=== PATIENT | female | born 1960 | race Caucasian/White ===

== ENCOUNTER → 2016-12-07 | Outpatient (CLI) | payer OTHER | LOC: FIMAGING 11:13 | PROVIDERS: ATTEND Family Medicine | DX: R06.00 Dyspnea, unspecified (principal); Z87.01 Personal history of pneumonia (recurrent) ==

== ENCOUNTER 2018-01-31 18:48 | Inpatient (IN) | payer OTHER ==
[2018-01-31] MEDS ORDERED: NS 1,000 ML IV ONE (19:26)
[2018-01-31] MEDS ORDERED: ONDANSETRON 4 MG/2 ML VIAL IVP ONE (19:26)
--- NOTE | 2018-01-31 19:30 | EDPHY ---
H & P Stated Complaint: lower abd pain, constipation x 6 days Time Seen by Provider: 01/31/18 19:11 HPI/ROS: CHIEF COMPLAINT: Low abdominal pain x6 days HISTORY OF PRESENT ILLNESS: 57-year-old female history of obesity, complaining of lower abdominal pain for the past 6 days, last bowel movement 7 days ago. Passing flatus. Positive mild nausea. No back or flank pain. Notes that her urine is more foul-smelling than usual. No fever or chills. History of abdominal surgeries. PRIMARY CARE PROVIDER: Tre Madrid REVIEW OF SYSTEMS: A ten point review of systems was performed and is negative with the exception of the items mentioned in the HPI PAST MEDICAL & SURGICAL HISTORY: Lumbar surgery. Chronic oxygen dependence. No history of abdominal surgeries. SOCIAL HISTORY: Positive tobacco abuse. PHYSICAL EXAM (Prior to examination, patient consented to physical exam, hands were washed and my usual and customary physical exam procedures followed) 1) GENERAL: Obese alert and oriented. Appears uncomfortable. 2) HEAD: Normocephalic, atraumatic 3) HEENT: Pupils equal, round, reactive to light bilaterally. Sclera anicteric. Nasopharynx, oropharynx, clear, no lesions. Dry mucous membranes 4) NECK: Full range of motion, no meningeal signs. 5) LUNGS: Clear auscultation bilaterally, no wheezes, no rhonchi, no retractions. 6) HEART: Regular rate and rhythm, no murmur, no heave, no gallop. 7) ABDOMEN: No guarding, tender to palpation bilateral lower quadrants, left greater than right, negative Caal's, negative peritoneal sign, 8) MUSCULOSKELETAL: Moving all extremities, no focal areas of tenderness, no obvious trauma. No peripheral edema or discoloration. 9) BACK: No CVA tenderness, no midline vertebral tenderness, no fluctuance, no step-off, no obvious trauma, no visual or palpable abnormality. 10) SKIN: No rash, no petechiae. 11) RECTAL (with nurse Chelo at bedside): Brown stool on glove. DIFFERENTIAL DIAGNOSIS: My differential diagnosis includes, but is not limited to, acute appendicitis, acute cholecystitis, bowel obstruction, acute pancreatitis, gastritis and urinary tract infection. The patient understands that this diagnosis is provisional and can never be 100% accurate. This is a partial list of diagnoses considered. These considerations are based on history , physical exam, past history and reassessment. - Personal History Tetanus Vaccine Date: 2008 - Medical/Surgical History Hx Asthma: No Hx Diabetes: No Hx Cardiac Disease: No Hx Renal Disease: No Hx Cirrhosis: No Hx Alcoholism: No Hx HIV/AIDS: No Hx Splenectomy or Spleen Trauma: No Other PMH: renal insuff. hepatitis. black mold - Social History Smoking Status: Never smoked Constitutional: Initial Vital Signs Temperature (C) 36.7 C 01/31/18 18:56 Heart Rate 100 01/31/18 18:56 Respiratory Rate 18 01/31/18 18:56 Blood Pressure 127/94 H 01/31/18 18:56 O2 Sat (%) 90 L 01/31/18 18:56 O2 Delivery Mode Room Air O2 (L/minute) 3 Allergies/Adverse Reactions: No Known Allergies Allergy (Unverified 01/31/18 18:54) Home Medications: Medication Instructions Recorded Lasix 01/31/18 Levothyroxine 01/31/18 Medical Decision Making - Diagnostics Imaging Results: Imaging Impressions Abdomen CT 01/31/18 19:58 Impression: Redundant sigmoid colon, with diverticulitis. Probable complex abscess between a loop of sigmoid colon and fundus of the uterus. Results called and discussed with Silverio Villegas PA-C, at January 31, 2018 at 6. Images reviewed by myself ED Course/Re-evaluation: 7:29 p.m.: Will obtain diagnostic studies including CT imaging to evaluate possible diverticulitis. Indications risks benefits discussed with patient and she consents. Care of patient under supervision of secondary supervising physician Dr Gonsalez whom I discussed case 8:25 p.m.: Discussed the imaging results with the staff radiologist showing a likely intra-abdominal abscess and viscous perforation 8:30 p.m.: Consultation with surgery Dr. Ziegler who agrees to admit patient primarily. Patient started on ceftriaxone Rocephin. Patient is also noted to have bacteriuria and pyuria. Urine is cultured. She is already on ceftriaxone for intra-abdominal pathology. Patient is also noted to be anemic, H&H 10 and 30 with guaiac-positive stool. - Data Points Laboratory Results: Laboratory Results 01/31/18 19:35 01/31/18 19:35 01/31/18 01/31/18 01/31/18 20:40 19:35 19:35 WBC 10.81 10^3/uL H 10^3/uL (3.80-9.50) RBC 3.16 10^6/uL L 10^6/uL (4.18-5.33) Hgb 10.3 g/dL L g/dL (12.6-16.3) Hct 32.1 % L % (38.0-47.0) MCV 101.6 fL H fL (81.5-99.8) MCH 32.6 pg pg (27.9-34.1) MCHC 32.1 g/dL L g/dL (32.4-36.7) RDW 15.0 % % (11.5-15.2) Plt Count 242 10^3/uL 10^3/uL (150-400) MPV 10.5 fL fL (8.7-11.7) Neut % (Auto) Not Reported Lymph % (Auto) Not Reported [place] % (Auto) Not Reported Eos % (Auto) Not Reported Baso % (Auto) Not Reported Nucleat RBC Rel Count 0.7 % H % (0.0-0.2) Absolute Neuts (auto) Not Reported Absolute Lymphs (auto) Not Reported Absolute Monos (auto) Not Reported Absolute Eos (auto) Not Reported Absolute Basos (auto) Not Reported Absolute Nucleated RBC 0.08 10^3/uL H 10^3/uL (0-0.01) Immature Gran % Not Reported Immature Gran # Not Reported Platelet Estimate Pending Sodium 142 mEq/L mEq/L (135-145) Potassium 3.4 mEq/L L mEq/L (3.5-5.2) Chloride 99 mEq/L mEq/L (97-110) Carbon Dioxide 27 mEq/l mEq/l (22-31) Anion Gap 16 mEq/L mEq/L (8-16) BUN 13 mg/dL mg/dL (7-23) Creatinine 0.9 mg/dL mg/dL (0.6-1.0) Estimated GFR > 60 Glucose 92 mg/dL mg/dL (70-100) Calcium 8.5 mg/dL mg/dL (8.5-10.4) Total Bilirubin 0.9 mg/dL mg/dL (0.1-1.4) Conjugated Bilirubin 0.8 mg/dL H mg/dL (0.0-0.5) Unconjugated Bilirubin 0.1 mg/dL mg/dL (0.0-1.1) AST 135 IU/L H IU/L (14-46) ALT 153 IU/L H IU/L (9-52) Alkaline Phosphatase 311 IU/L H IU/L (38-126) Total Protein 8.1 g/dL g/dL (6.3-8.2) Albumin 3.9 g/dL g/dL (3.5-5.0) Lipase 173 IU/L IU/L (23-300) Urine Color Urine Appearance Urine pH Ur Specific [place] Urine Protein Urine Ketones Urine Blood Urine Nitrate Urine Bilirubin Urine Urobilinogen Ur Leukocyte Esterase Urine RBC Urine WBC Ur Epithelial Cells Urine Bacteria Urine Mucus Urine Glucose Stool Occult Bld Scrn POSITIVE H (NEGATIVE) 01/31/18 19:10 WBC RBC Hgb Hct MCV MCH MCHC RDW Plt Count MPV Neut % (Auto) Lymph % (Auto) [place] % (Auto) Eos % (Auto) Baso % (Auto) Nucleat RBC Rel Count Absolute Neuts (auto) Absolute Lymphs (auto) Absolute Monos (auto) Absolute Eos (auto) Absolute Basos (auto) Absolute Nucleated RBC Immature Gran % Immature Gran # Platelet Estimate Sodium Potassium Chloride Carbon Dioxide Anion Gap BUN Creatinine Estimated GFR Glucose Calcium Total Bilirubin Conjugated Bilirubin Unconjugated Bilirubin AST ALT Alkaline Phosphatase Total Protein Albumin Lipase Urine Color SEBASTIAN Urine Appearance HAZY Urine pH 6.0 (5.0-7.5) Ur Specific [place] 1.017 (1.002-1.030) Urine Protein 1+ H (NEGATIVE) Urine Ketones NEGATIVE (NEGATIVE) Urine Blood NEGATIVE (NEGATIVE) Urine Nitrate POSITIVE H (NEGATIVE) Urine Bilirubin NEGATIVE (NEGATIVE) Urine Urobilinogen 4.0 EU H EU (0.2-1.0) Ur Leukocyte Esterase 2+ H (NEGATIVE) Urine RBC 1-3 /hpf /hpf (0-3) Urine WBC 50-182 /hpf H /hpf (0-3) Ur Epithelial Cells TRACE /lpf /lpf (NONE-1+) Urine Bacteria 4+ /hpf H /hpf (NONE SEEN) Urine Mucus TRACE /lpf /lpf (NONE-1+) Urine Glucose NEGATIVE (NEGATIVE) Stool Occult Bld Scrn Medications Given: Discontinued Medications Sodium Chloride (Ns) 1,000 mls @ 0 mls/hr IV ONCE ONE PRN Reason: Wide Open Stop: 01/31/18 19:27 Last Admin: 01/31/18 19:45 Dose: 1,000 mls Morphine Sulfate (Morphine) 4 mg IVP EDNOW ONE Stop: 01/31/18 19:27 Last Admin: 01/31/18 19:44 Dose: 4 mg Ondansetron HCl (Zofran) 4 mg IVP EDNOW ONE Stop: 01/31/18 19:27 Last Admin: 01/31/18 19:44 Dose: 4 mg Departure - Departure Disposition: [facility] [place] Inpatient Acute Clinical Impression: Intra-abdominal abscess, Perforated viscus, LFT elevation Abdominal pain Qualifiers: Abdominal location: left lower quadrant Qualified Code(s): R10.32 - Left lower quadrant pain GI bleed Qualifiers: GI bleed type/associated pathology: unspecified gastrointestinal hemorrhage type Qualified Code(s): K92.2 - Gastrointestinal hemorrhage, unspecified Anemia Qualifiers: Anemia type: unspecified type Qualified Code(s): D64.9 - Anemia, unspecified Condition: Fair Referrals: Tre Madrid DO [Primary Care Provider] - As per Instructions
[2018-01-31 19:44] LABS: PLATELET COUNT 242 10^3/uL (150-400)
[2018-01-31] MEDS ORDERED: IOPAMIDOL (ISOVUE-300) 100 ML BTL ONE (20:01)
[2018-01-31] MEDS ORDERED: ONDANSETRON 4 MG/2 ML VIAL IVP PRN (20:58)
[2018-01-31] MEDS ORDERED: HYDROmorphone HCL/NS 0.5 MG/ML SYR IVP PRN (20:58)
[2018-01-31] MEDS ORDERED: D5W 1/2 NS W/ 20 KCl/L 1,000 ML IV SCH (21:00)
--- NOTE | 2018-01-31 21:10 | PDGENHP ---
History and Physical - Chief Complaint abdominal pain - History of Present Illness 57yo F, presents to the ED with 6 day history of abdominal pain. States pain is crampy and colicky, came to the ED tonight as she could no longer tolerate the pain. Denies fevers, endorses chills. Last PO intake was this AM. BMs have been irregular. History Information - Allergies/Home Medication List Allergies/Adverse Reactions: No Known Allergies Allergy (Unverified 01/31/18 18:54) Home Medications: Lasix 01/31/18 [Last Taken Unknown] Levothyroxine 01/31/18 [Last Taken Unknown] I have personally reviewed and updated: family history, medical history, social history, surgical history Past Medical History: hypothyroid, chronic back pain, chronic O2 - Surgical History Additional surgical history: back surgery - Family History Positive for: non-pertinent - Social History Smoking Status: Never smoked Review of Systems Review of Systems: ROS: 10pt was reviewed & negative except for what was stated in HPI & below Physical Exam Physical Exam: Temp Pulse Resp BP Pulse Ox 36.7 C 100 18 127/94 H 90 L 01/31/18 18:56 01/31/18 18:56 01/31/18 18:56 01/31/18 18:56 01/31/18 18:56 Constitutional: appears nourished, not in pain, other (mild distress) Eyes: PERRL, anicteric sclera, EOMI Ears, Nose, Mouth, Throat: moist mucous membranes, hearing normal, ears appear normal, no oral mucosal ulcers Cardiovascular: regular rate and rhythym, no murmur, rub, or gallop, No edema Respiratory: no respiratory distress, no rales or rhonchi, clear to auscultation , other (on O2) Gastrointestinal: other (Obese, TTP inferior to the umbilicus, with rebound tenderness. ) Genitourinary: no bladder fullness, no bladder tenderness Skin: warm, normal color, no rashes or abrasions, no fluctuance, no induration, No mottled Musculoskeletal: full muscle strength, no muscle tenderness, normal joint ROM, no joint effusions Psychiatric: interacting appropriately, not anxious, not encephalopathic, thought process linear Lymph, Heme, Immunologic: no cervical LAD, no supraclavicular LAD Lab Data & Imaging Review 01/31/18 19:35 01/31/18 19:35 WBC 10.81 10^3/uL (3.80-9.50) H 01/31/18 19:35 RBC 3.16 10^6/uL (4.18-5.33) L 01/31/18 19:35 Hgb 10.3 g/dL (12.6-16.3) L 01/31/18 19:35 Hct 32.1 % (38.0-47.0) L 01/31/18 19:35 MCV 101.6 fL (81.5-99.8) H 01/31/18 19:35 MCH 32.6 pg (27.9-34.1) 01/31/18 19:35 MCHC 32.1 g/dL (32.4-36.7) L 01/31/18 19:35 RDW 15.0 % (11.5-15.2) 01/31/18 19:35 Plt Count 242 10^3/uL (150-400) 01/31/18 19:35 MPV 10.5 fL (8.7-11.7) 01/31/18 19:35 Neut % (Auto) Not Reported 01/31/18 19:35 Lymph % (Auto) Not Reported 01/31/18 19:35 [place] % (Auto) Not Reported 01/31/18 19:35 Eos % (Auto) Not Reported 01/31/18 19:35 Baso % (Auto) Not Reported 01/31/18 19:35 Nucleat RBC Rel Count 0.7 % (0.0-0.2) H 01/31/18 19:35 Absolute Neuts (auto) Not Reported 01/31/18 19:35 Absolute Lymphs (auto) Not Reported 01/31/18 19:35 Absolute Monos (auto) Not Reported 01/31/18 19:35 Absolute Eos (auto) Not Reported 01/31/18 19:35 Absolute Basos (auto) Not Reported 01/31/18 19:35 Absolute Nucleated RBC 0.08 10^3/uL (0-0.01) H 01/31/18 19:35 Immature Gran % Not Reported 01/31/18 19:35 Seg Neutrophils % 73 % 01/31/18 19:35 Lymphocytes % 23 % 01/31/18 19:35 Monocytes % 4 % 01/31/18 19:35 Immature Gran # Not Reported 01/31/18 19:35 Absolute Seg Neuts 7.89 10^/uL (1.70-6.50) H 01/31/18 19:35 Absolute Lymphocytes 2.49 10^3/uL (1.00-3.00) 01/31/18 19:35 Absolute Monocytes 0.43 10^3/uL (0.30-0.80) 01/31/18 19:35 Nucleated RBCs 1 /100 WBC (0-0) H 01/31/18 19:35 Platelet Estimate ADEQUATE (ADEQ) 01/31/18 19:35 Polychromasia 1+ H 01/31/18 19:35 Sodium 142 mEq/L (135-145) 01/31/18 19:35 Potassium 3.4 mEq/L (3.5-5.2) L 01/31/18 19:35 Chloride 99 mEq/L (97-110) 01/31/18 19:35 Carbon Dioxide 27 mEq/l (22-31) 01/31/18 19:35 Anion Gap 16 mEq/L (8-16) 01/31/18 19:35 BUN 13 mg/dL (7-23) 01/31/18 19:35 Creatinine 0.9 mg/dL (0.6-1.0) 01/31/18 19:35 Estimated GFR > 60 01/31/18 19:35 Glucose 92 mg/dL (70-100) 01/31/18 19:35 Calcium 8.5 mg/dL (8.5-10.4) 01/31/18 19:35 Total Bilirubin 0.9 mg/dL (0.1-1.4) 01/31/18 19:35 Conjugated Bilirubin 0.8 mg/dL (0.0-0.5) H 01/31/18 19:35 Unconjugated Bilirubin 0.1 mg/dL (0.0-1.1) 01/31/18 19:35 AST 135 IU/L (14-46) H 01/31/18 19:35 ALT 153 IU/L (9-52) H 01/31/18 19:35 Alkaline Phosphatase 311 IU/L (38-126) H 01/31/18 19:35 Total Protein 8.1 g/dL (6.3-8.2) 01/31/18 19:35 Albumin 3.9 g/dL (3.5-5.0) 01/31/18 19:35 Lipase 173 IU/L (23-300) 01/31/18 19:35 Urine Color SEBASTIAN 01/31/18 19:10 Urine Appearance HAZY 01/31/18 19:10 Urine pH 6.0 (5.0-7.5) 01/31/18 19:10 Ur Specific [place] 1.017 (1.002-1.030) 01/31/18 19:10 Urine Protein 1+ (NEGATIVE) H 01/31/18 19:10 Urine Ketones NEGATIVE (NEGATIVE) 01/31/18 19:10 Urine Blood NEGATIVE (NEGATIVE) 01/31/18 19:10 Urine Nitrate POSITIVE (NEGATIVE) H 01/31/18 19:10 Urine Bilirubin NEGATIVE (NEGATIVE) 01/31/18 19:10 Urine Urobilinogen 4.0 EU (0.2-1.0) H 01/31/18 19:10 Ur Leukocyte Esterase 2+ (NEGATIVE) H 01/31/18 19:10 Urine RBC 1-3 /hpf (0-3) 01/31/18 19:10 Urine WBC 50-182 /hpf (0-3) H 01/31/18 19:10 Ur Epithelial Cells TRACE /lpf (NONE-1+) 01/31/18 19:10 Urine Bacteria 4+ /hpf (NONE SEEN) H 01/31/18 19:10 Urine Mucus TRACE /lpf (NONE-1+) 01/31/18 19:10 Urine Glucose NEGATIVE (NEGATIVE) 01/31/18 19:10 Stool Occult Bld Scrn POSITIVE (NEGATIVE) H 01/31/18 20:40 Visualized and Interpreted imaging results: Yes Interpretation: CT: perforated diverticulitis with intraloop abscess Assessment & Plan Assessment: Abdominal pain (Acute) Anemia (Acute) GI bleed (Acute) Intra-abdominal abscess (Acute) LFT elevation (Acute) Perforated viscus (Acute) Plan: 57yo F with perforated diverticulitis and abscess - IV abx - NPO - to OR for ex lap, colectomy, possible ostomy. RBA discussed especially the high likelihood for colostomy
[2018-01-31] MEDS ORDERED: ACETAMINOPHEN 650 MG SUPP PR ONE (21:11)
[2018-01-31] MEDS ORDERED: LR 1,000 ML IV ONE ×2 (22:48)
[2018-01-31] MEDS ORDERED: ALBUTEROL 60 PUFFS/8 GM MDI IH PRN (23:47)
--- NOTE | 2018-01-31 23:51 | PDANEPAE ---
ANE History of Present Illness exlap ANE Past Medical History - Cardiovascular History Hx Hypertension: No Hx Arrhythmias: No Hx Chest Pain: No Hx Coronary Artery / Peripheral Vascular Disease: No Hx CHF / Valvular Disease: No Hx Palpitations: No - Pulmonary History Hx COPD: Yes Hx Asthma/Reactive Airway Disease: No Hx Recent Upper Respiratory Infection: No Hx Oxygen in Use at Home: Yes O2 in Use at Home (L/minute): 3 Hx Sleep Apnea: Yes - Endocrine History Hx Diabetes: No Hypothyroid: Yes Hyperthyroid: No Obesity: yes, severe - Renal History Hx Renal Disorders: Yes - Liver History Hx Hepatic Disorders: Yes - Neurological & Psychiatric Hx Hx Neurological and Psychiatric Disorders: Yes - Cancer History Hx Cancer: No - GI History GERD: mild - Chronic Pain History Chronic Pain: Yes ANE Review of Systems Review of Systems: - Exercise capacity Exercise capacity: <4 METS - Systems Gastrointestinal: Reports: abdominal pain ANE Patient History - Allergies Allergies/Adverse Reactions: No Known Allergies Allergy (Unverified 01/31/18 18:54) - Home Medications Home Medications: Albuterol [Proventil Inhaler HFA (*)] 1 - 2 puffs IH Q4H PRN 01/31/18 [Last Taken Unknown] Fluticasone/Salmeter 500/50Mcg [Advair 500/50 (*)] 1 puffs IH BID 01/31/18 [ Last Taken Unknown] Furosemide [Lasix 20 MG (*)] 20 mg PO DAILY 01/31/18 [Last Taken 01/28/18] Levothyroxine [Synthroid 175 mcg (*)] 175 mcg PO DAILY06 01/31/18 [Last Taken ] oxyCODONE IR [Oxycodone Ir (*)] 30 mg PO Q6 PRN 01/31/18 [Last Taken 01/25/18] - NPO status NPO Status: no food or drink >8 hours NPO Since - Liquids (Date): 01/31/18 NPO Since - Liquids (Time): 13:00 NPO Since - Solids (Date): 01/30/18 NPO Since - Solids (Time): 22:30 - Anes Hx Anes Hx: no prior problems - Smoking Hx Smoking Status: Light smoker Marijuana use: No - Alcohol Use Alcohol Use: Occasionally ANE Labs/Vital Signs - Labs Result Diagrams: 01/31/18 19:35 01/31/18 19:35 - Vital Signs Vital Signs: reviewed preoperatively; see RN documention for details Blood Pressure: 112/87 Heart Rate: 96 Respiratory Rate: 24 O2 Sat (%): 96 Height: 165.1 cm Weight: 113.398 kg ANE Physical Exam - Airway Neck exam: FROM Mallampati Score: Class 2 - Pulmonary Pulmonary: expiratory wheeze - Cardiovascular Cardiovascular: regular rate and rhythym - ASA Status ASA Status: III, E ANE Anesthesia Plan Anesthesia Plan: general endotracheal anesthesia
[2018-01-31] MEDS ORDERED: MIDAZOLAM 2 MG/2 ML VIAL IVP ONE (23:53)
[2018-02-01] MEDS ORDERED: ROCURONIUM 100 MG/10 ML VIAL ONE (00:16)
[2018-02-01] MEDS ORDERED: PROPOFOL 200 MG/20 ML VIAL ONE ×2 (00:16→00:17)
[2018-02-01] MEDS ORDERED: fentaNYL 100 MCG/2 ML INJ ONE (00:16)
[2018-02-01] MEDS ORDERED: MIDAZOLAM 2 MG/2 ML VIAL ONE (00:16)
--- NOTE | 2018-02-01 00:44 | PDHOSCONS ---
History and Physical - Chief Complaint Abdominal pain - History of Present Illness 57 yo obese F w/ obesity related respiratory disease, ?COPD, chronic pain, and venous insufficiency presents with abdominal pain. Work-up in the ED was notable for diverticulitis with perforation and abscess so she is being taken to OR for management. Surgery service requested consult for medical management of medical comorbidities. Work-up in ED also notable for a UTI. History Information - Allergies/Home Medication List Allergies/Adverse Reactions: No Known Allergies Allergy (Unverified 01/31/18 18:54) Home Medications: Albuterol [Proventil Inhaler HFA (*)] 1 - 2 puffs IH Q4H PRN 01/31/18 [Last Taken Unknown] Fluticasone/Salmeter 500/50Mcg [Advair 500/50 (*)] 1 puffs IH BID 01/31/18 [ Last Taken Unknown] Furosemide [Lasix 20 MG (*)] 20 mg PO DAILY 01/31/18 [Last Taken 01/28/18] Levothyroxine [Synthroid 175 mcg (*)] 175 mcg PO DAILY06 01/31/18 [Last Taken ] oxyCODONE IR [Oxycodone Ir (*)] 30 mg PO Q6 PRN 01/31/18 [Last Taken 01/25/18] I have personally reviewed and updated: family history, medical history Past Medical History: hypothyroid, chronic back pain, chronic O2 - Past Medical History COPD - Surgical History Additional surgical history: back surgery - Family History Positive for: cancer - Social History Smoking Status: Light smoker Alcohol Use: Occasionally Review of Systems Review of Systems: ROS: 10pt was reviewed & negative except for what was stated in HPI & below Physical Exam Physical Exam: Temp Pulse Resp BP Pulse Ox 38.1 C 96 24 H 112/87 H 96 01/31/18 23:05 01/31/18 23:53 01/31/18 23:53 01/31/18 23:53 01/31/18 23:53 O2 (L/minute) 4 Constitutional: obese, uncomfortable Eyes: PERRL, EOMI Ears, Nose, Mouth, Throat: moist mucous membranes, no oral mucosal ulcers Cardiovascular: regular rate and rhythym, no murmur, rub, or gallop Respiratory: no respiratory distress, reduced air movement Gastrointestinal: tenderness, guarding, No rebound Skin: warm, normal color Musculoskeletal: full muscle strength, no muscle tenderness Neurologic: AAOx3, CN II-XII Intact Psychiatric: interacting appropriately, not anxious Lab Data & Imaging Review 01/31/18 19:35 01/31/18 19:35 WBC 10.81 10^3/uL (3.80-9.50) H 01/31/18 19:35 RBC 3.16 10^6/uL (4.18-5.33) L 01/31/18 19:35 Hgb 10.3 g/dL (12.6-16.3) L 01/31/18 19:35 Hct 32.1 % (38.0-47.0) L 01/31/18 19:35 MCV 101.6 fL (81.5-99.8) H 01/31/18 19:35 MCH 32.6 pg (27.9-34.1) 01/31/18 19:35 MCHC 32.1 g/dL (32.4-36.7) L 01/31/18 19:35 RDW 15.0 % (11.5-15.2) 01/31/18 19:35 Plt Count 242 10^3/uL (150-400) 01/31/18 19:35 MPV 10.5 fL (8.7-11.7) 01/31/18 19:35 Neut % (Auto) Not Reported 01/31/18 19:35 Lymph % (Auto) Not Reported 01/31/18 19:35 [place] % (Auto) Not Reported 01/31/18 19:35 Eos % (Auto) Not Reported 01/31/18 19:35 Baso % (Auto) Not Reported 01/31/18 19:35 Nucleat RBC Rel Count 0.7 % (0.0-0.2) H 01/31/18 19:35 Absolute Neuts (auto) Not Reported 01/31/18 19:35 Absolute Lymphs (auto) Not Reported 01/31/18 19:35 Absolute Monos (auto) Not Reported 01/31/18 19:35 Absolute Eos (auto) Not Reported 01/31/18 19:35 Absolute Basos (auto) Not Reported 01/31/18 19:35 Absolute Nucleated RBC 0.08 10^3/uL (0-0.01) H 01/31/18 19:35 Immature Gran % Not Reported 01/31/18 19:35 Seg Neutrophils % 73 % 01/31/18 19:35 Lymphocytes % 23 % 01/31/18 19:35 Monocytes % 4 % 01/31/18 19:35 Immature Gran # Not Reported 01/31/18 19:35 Absolute Seg Neuts 7.89 10^/uL (1.70-6.50) H 01/31/18 19:35 Absolute Lymphocytes 2.49 10^3/uL (1.00-3.00) 01/31/18 19:35 Absolute Monocytes 0.43 10^3/uL (0.30-0.80) 01/31/18 19:35 Nucleated RBCs 1 /100 WBC (0-0) H 01/31/18 19:35 Platelet Estimate ADEQUATE (ADEQ) 01/31/18 19:35 Polychromasia 1+ H 01/31/18 19:35 VBG Lactic Acid 1.0 mmol/L (0.7-2.1) 01/31/18 21:35 Sodium 142 mEq/L (135-145) 01/31/18 19:35 Potassium 3.4 mEq/L (3.5-5.2) L 01/31/18 19:35 Chloride 99 mEq/L (97-110) 01/31/18 19:35 Carbon Dioxide 27 mEq/l (22-31) 01/31/18 19:35 Anion Gap 16 mEq/L (8-16) 01/31/18 19:35 BUN 13 mg/dL (7-23) 01/31/18 19:35 Creatinine 0.9 mg/dL (0.6-1.0) 01/31/18 19:35 Estimated GFR > 60 01/31/18 19:35 Glucose 92 mg/dL (70-100) 01/31/18 19:35 Calcium 8.5 mg/dL (8.5-10.4) 01/31/18 19:35 Total Bilirubin 0.9 mg/dL (0.1-1.4) 01/31/18 19:35 Conjugated Bilirubin 0.8 mg/dL (0.0-0.5) H 01/31/18 19:35 Unconjugated Bilirubin 0.1 mg/dL (0.0-1.1) 01/31/18 19:35 AST 135 IU/L (14-46) H 01/31/18 19:35 ALT 153 IU/L (9-52) H 01/31/18 19:35 Alkaline Phosphatase 311 IU/L (38-126) H 01/31/18 19:35 Total Protein 8.1 g/dL (6.3-8.2) 01/31/18 19:35 Albumin 3.9 g/dL (3.5-5.0) 01/31/18 19:35 Lipase 173 IU/L (23-300) 01/31/18 19:35 Urine Color SEBASTIAN 01/31/18 19:10 Urine Appearance HAZY 01/31/18 19:10 Urine pH 6.0 (5.0-7.5) 01/31/18 19:10 Ur Specific [place] 1.017 (1.002-1.030) 01/31/18 19:10 Urine Protein 1+ (NEGATIVE) H 01/31/18 19:10 Urine Ketones NEGATIVE (NEGATIVE) 01/31/18 19:10 Urine Blood NEGATIVE (NEGATIVE) 01/31/18 19:10 Urine Nitrate POSITIVE (NEGATIVE) H 01/31/18 19:10 Urine Bilirubin NEGATIVE (NEGATIVE) 01/31/18 19:10 Urine Urobilinogen 4.0 EU (0.2-1.0) H 01/31/18 19:10 Ur Leukocyte Esterase 2+ (NEGATIVE) H 01/31/18 19:10 Urine RBC 1-3 /hpf (0-3) 01/31/18 19:10 Urine WBC 50-182 /hpf (0-3) H 01/31/18 19:10 Ur Epithelial Cells TRACE /lpf (NONE-1+) 01/31/18 19:10 Urine Bacteria 4+ /hpf (NONE SEEN) H 01/31/18 19:10 Urine Mucus TRACE /lpf (NONE-1+) 01/31/18 19:10 Urine Glucose NEGATIVE (NEGATIVE) 01/31/18 19:10 Stool Occult Bld Scrn POSITIVE (NEGATIVE) H 01/31/18 20:40 Imaging Review: Imaging Impressions Abdomen CT 01/31/18 19:58 Impression: Redundant sigmoid colon, with diverticulitis. Probable complex abscess between a loop of sigmoid colon and fundus of the uterus. Results called and discussed with Silverio Villegas PA-C, at January 31, 2018 at 2036. Chest X-Ray 01/31/18 21:12 Impression: Atelectasis at both lung bases. Poor inspiratory effort. Assessment & Plan Assessment: 57 yo obese F w/ obesity related respiratory disease, ?COPD, chronic pain, and venous insufficiency presents with complicated diverticulitis and UTI. Plan: 1. Complicated diverticulitis - With viscus perforation and associated abscess. - To OR for management per surgical service - Will defer decision for ongoing antibiotics pending surgical results 2. UTI - Patient complaining of foul smelling urine. UA w/ 2+LE, nitrate+, >50 WBCs. - CTX 1 g qD x3 days - Blood and urine cultures pending 3. Macrocytic anemia - Possibly related to acute diverticulitis noting FOBT+ stool. Will check ferritin and B12. - Monitor daily CBC - Transfuse for Hgb <7 4. Abnormal LFTs - Possibly as a result of infection. Patient does have a history of Hep C but this has been treated. - Monitor daily LFTs 5. ?COPD, obesity related lung disease - Patient uses Advair and albuterol as an outpatient. High risk for post-op hypoxia. May need higher level of care if respiratory status is complicated after surgery. 6. Chronic pain - s/p previous back surgery. On oxycodone 30 mg q6h PRN. Query on PDMP confirms oxycodone 30 mg 120 tablets on a monthly basis with no prescription behavior suspicious for abuse. - Continue oxycodone 30 mg q6h PRN Diet - Per surgery Code - Full Ppx - SCDs Thank you for this consult, the hospitalist service will follow along. Please do not hesitate to call with any questions.
[2018-02-01] MEDS ORDERED: SUGAMMADEX SODIUM 200 MG/2 ML VIAL IVP ONE ×2 (00:59→01:55)
[2018-02-01] MEDS ORDERED: DEXAMETHASONE 4 MG/ML VIAL ONE (00:59)
[2018-02-01] MEDS ORDERED: ONDANSETRON 4 MG/2 ML VIAL ONE (00:59)
[2018-02-01] MEDS ORDERED: KETOROLAC 30 MG/1 ML SDV ONE (00:59)
[2018-02-01] MEDS ORDERED: HYDROmorphONE/DILAUDID 2 MG/ML INJ ONE (01:20)
[2018-02-01] MEDS ORDERED: BUPIVACAINE 0.25% 30 ML SDV ONE (01:35)
[2018-02-01] MEDS ORDERED: PROMETHAZINE HCL 25 MG/ML INJ IVP PRN (02:23)
[2018-02-01] MEDS ORDERED: ONDANSETRON DISINTEGRATING 4 MG TAB PO PRN (02:23)
--- NOTE | 2018-02-01 02:23 | POSTOPPROG ---
Post Op Note Date of Operation: 02/01/18 Surgeon: Bridger Ziegler Anesthesiologist: Baron Anesthesia: GET(General Endotracheal) Pre-op Diagnosis: Perforateddverticulitis Post-op Diagnosis: same Procedure: Ex-lap, sigmoid colectomy, end colostomy, hartmanns Findings: very low perf, gross contaminatio Inf/Abcess present in the surg proc area at time of surgery?: Yes Depth: Organ Space EBL: 50-100 Total fluids administered: 3000cc NS washout Drains: Carmelo Buck Specimen(s): sigmoid colon
[2018-02-01] MEDS ORDERED: D5W 1/2 NS W/ 20 KCl/L 1,000 ML IV SCH (02:30)
[2018-02-01] MEDS: ALBUTEROL 3 ML DEYVIAL IH PRN ×2 (02:30→02:54)
[2018-02-01] MEDS ORDERED: ALBUTEROL 3 ML DEYVIAL ONE ×2 (02:31→02:43)
[2018-02-01] MEDS ORDERED: ONDANSETRON 4 MG/2 ML VIAL IVP PRN (02:42)
[2018-02-01] MEDS ORDERED: NALOXONE HCL 0.4 MG/ML INJ IVP PRN (02:42)
[2018-02-01] MEDS ORDERED: fentaNYL 100 MCG/2 ML INJ IVP PRN (02:42)
--- NOTE | 2018-02-01 02:42 | POSTANESTH ---
Post Anesthetic Evaluation Cardiovascular Status: Normal, Stable Respiratory Status: Tx Decrease in SpO2, Other, See Comment Level of Consciousness/Mental Status: Mildly Sleepy, Arousable Pain Control: Adequate, Prn Tx Ordered Nausea/Vomiting Control: Adequate, Prn Tx Ordered Complications Possibly Related to Anesthesia: None Noted ([facility] BIPAP, SUSPECT MINIMAL PULMONARY RESRVE COMPOUNDED BY POOR RESPIRATORY EFFORT)
--- NOTE | 2018-02-01 05:44 | PDMN ---
Medical Necessity Medical necessity: C/M review: Patient meets INPT criteria under [id number] Bowel Surgery: Colectomy, Partial, with or without Ostomy: Acute very low perforated diverticulitis, intra-abdominal abscess with gross contamination requiring urgent surgery - exploratory laparotomy, sigmoid colectomy , abdominal washout, end colostomy, Hartmanns procedure, ongoing Hospitalist consult, ongoing postop IV Ceftriaxone QD, IV Flagyl Q 8hrs. IV D5W 1/2 NS with 20 meq KCL 125 ml/hr. infusion, pulse oximetry, supplemental O2 via BiPaP in SDU , comorbid hypothyroidism, chronic back pain, chronic O2 use. MD anticipates > 2 MN LOS for ongoing med nec for eval and TX of above. Patient is Medicare Advantage which follows guidelines CMS puts forth.
[2018-02-01] MEDS: HYDROmorphone HCL/NS 0.5 MG/ML SYR IVP PRN ×2 (08:06→12:09)
[2018-02-01] MEDS ORDERED: ALBUMIN 5% 500 ML IV ONE (08:31)
--- NOTE | 2018-02-01 08:33 | SOAPPROG ---
SOAP Progress Note Assessment/Plan: Assessment/Plan: 57-year-old female status post exploratory laparotomy, sigmoid colectomy and end colostomy with Herrera's pouch for perforated sigmoid diverticulitis - was placed in the ICU overnight for pulmonary issues, remains on BiPAP at 70% FiO2 this morning. - abdomen is soft, appropriately tender, stoma is beefy red with some sweat in the appliance. MICKI is serosanguineous - pulmonary issues driving her care currently, will have pulmonology see her today and assist with her management. Okay for clear liquids once off BiPAP and stable from pulmonary standpoint 02/01/18 08:32 Subjective: Sleepy, still on BiPAP Objective: Vital Signs Temp Pulse Resp BP Pulse Ox 36.7 C 83 13 112/70 97 02/01/18 04:00 02/01/18 08:00 02/01/18 08:00 02/01/18 08:00 02/01/18 08:00 Laboratory Results 02/01/18 05:14 02/01/18 05:14 01/31/18 02/01/18 02/02/18 05:59 05:59 05:59 Intake Total 650 Output Total 120 45 Balance 530 -45 ICD10 Worksheet Patient Problems: Problems Problem Status Onset Abdominal pain Acute Anemia Acute GI bleed Acute Intra-abdominal abscess Acute LFT elevation Acute Perforated viscus Acute
[2018-02-01] MEDS: FLUTICASONE/SALMETER 500/50MCG DISKUS IH SCH ×2 (09:33→22:40)
[2018-02-01] MEDS: LEVOTHYROXINE 175 MCG TAB PO SCH (10:34)
[2018-02-01] MEDS: oxyCODONE IR 5 MG TAB PO PRN (11:23)
--- NOTE | 2018-02-01 11:55 | GCON ---
[f rep st] CONSULTATION LEVER OPERATOR CONSULTATION DATE OF CONSULTATION: 02/01/2018 REASON FOR ADMISSION: Abdominal pain. HISTORY OF PRESENT ILLNESS: Ms. Treadwell is a pleasant 57-year-old white female with a past medical hi story of morbid obesity, chronic pain, chronic hypoxemic respiratory failure secondary to obesity. Doni mcfadden presented to the emergency room with complaints of abdominal pain. She was subsequently taken to [facility] operating room where she underwent exploratory lap sigmoid colectomy and end colostomy with a Scales garay's pouch for perforated sigmoid diverticulitis. She was subsequently admitted to the intensive c are unit. In discussion the patient, she states overall she feels markedly improved. Her abdominal pain is better. She is breathing easily on supplemental oxygen and she is down to the amount of FiO2 she is on at home. She denies any cough or production of sputum. Her throat is a little sore. Ther e is no fever or night sweats. REVIEW OF SYSTEMS: 10-point review of systems was performed and negative except for what was found o n HPI. PAST MEDICAL HISTORY: Significant for chronic obstructive pulmonary disease, morbid obesity, probabl e obesity hypoventilation syndrome. PAST SURGICAL HISTORY: She has had back surgery. ALLERGIES: No known allergies to medications. SOCIAL HISTORY: She is a long-term smoker and continues to smoke. She drinks alcohol infrequently. FAMILY HISTORY: Noncontributory. PHYSICAL EXAMINATION: VITAL SIGNS: Blood pressure is 106/81, pulse 78, respirations 12 temperature, she is afebrile. Oxygen saturation 95% on 3 L. GENERAL: She is morbidly obese but extremely pleas ant 57-year-old white female who is resting comfortably in no acute distress. HEENT: Eyes are ZECHARIAH, E CARA. Throat shows no erythema or tonsillar hypertrophy. NECK: Supple. No cervical adenopathy. HE ART: Sounds are distant but regular rate and rhythm. LUNGS: Diminished breath sounds but no wheeze . ABDOMEN: Patient is soft but appropriately tender. Bowel sounds are present. EXTREMITIES: No cl ubbing, cyanosis, or edema. LABORATORIES: White count 9.0, hemoglobin 8.8, hematocrit 28, platelet count is 200. Sodium is 141, potassium 3.6, chloride 102, CO2 is 23, BUN is 14, creatinine 1.2. Glucose is 161. AST is elevated a t 84. ALT 111. Urinalysis, pH 6, specific gravity 1.017. Positive nitrite. 50 to 182 WBCs. IMAGING: Chest x-ray is clear. IMPRESSION: 1. Abdominal pain. 2. Status post exploratory laparotomy, sigmoid colectomy and end colostomy. 3. Chronic respiratory failure. likely secondary to obesity and chronic obstructive pulmonary diseas e. 4. Chronic obstructive pulmonary disease. 5. Possible obesity hypoventilation syndrome. 6. History of chronic pain. RECOMMENDATIONS: 1. Wean FiO2 as tolerated. 2. Frequent nebulizer treatments with both albuterol and Atrovent. 3. DVT and PE prophylaxis. 4. Stress ulcer prophylaxis. 5. Early ambulation. 6. Patient is currently on clear liquids. /[id number]/MODL
[2018-02-01] MEDS ORDERED: FUROSEMIDE 20 MG/2 ML VIAL IVP ONE (17:54)
[2018-02-01] MEDS: IPRATROPIUM/ALBUTEROL 3 ML DEYVIAL IH SCH ×2 (17:55→22:40)
--- NOTE | 2018-02-01 18:07 | HOSPPROG ---
Hospitalist Progress Note Assessment/Plan: Assessment: 57-year-old female presenting with acute perforated sigmoid diverticulitis requiring sigmoid colectomy, complicated by acute pulmonary insufficiency in the setting of chronic hypoxic respiratory failure Plan: 1. Perforated sigmoid diverticulitis. Acute, postop day 1 sigmoid colectomy with end colostomy and Herrera's pouch by Dr. Ziegler -day 2 antibiotics, continue ceftriaxone and metronidazole -clear liquid diet -monitor fever curve, white blood cell count -ongoing ostomy care 2. Acute postoperative pulmonary insufficiency. Postoperatively the patient developed worsening hypoxia, increased tachypnea, and required stabilization on BiPAP in the step-down unit, her FiO2 was weaned and she was weaned on to 3 L nasal cannula today, but then experienced increased tachypnea and desaturations after transfer to the med surge unit, requiring up titration to 8 L -exact etiology is unclear, but I do not believe that the cause is related to the surgery, but rather her underlying obesity hypoventilation, COPD, abdominal pain with hypoventilation on chest x-ray (personally interpreted) -continue on 8 liters/minute, transfer back to step-down unit if oxygen requirements increasing -repeated chest x-ray, does not demonstrate focal consolidation or significantly worsening airspace disease, but the patient has received 1.5 L of fluid today and she may be experiencing an element of volume overload, give IV Lasix 20 mg now, monitor strict I&Os -empirically give duo nebs as there is an element of wheezing -get ABG -EKG demonstrating no evidence of ischemia -if patient develops worsening tachypnea or increased oxygen requirements, consider pulmonary embolism and get CT angiogram -responded to stat team with Dr. Santana Bell, 40 min of total critical care time spent with this patient today, at bedside, addressing this issue, specifically her acute pulmonary insufficiency, which rendered her critically ill and high risk for worsening morbidity and/or mortality, daughter at bedside in update provided 3. Chronic hypoxic respiratory failure. Likely secondary to a combination of underlying COPD and obesity hypoventilation syndrome, patient has 3 liters/ minute as her baseline 4. Transaminitis. Most likely secondary to hepatic steatosis, repeat complete metabolic profile in a.m. 5. Acute blood loss anemia. Hemoglobin 8.8, repeat CBC at this time 6. Morbid obesity. BMI greater than 45, rendering higher risk of worsening morbidity and/or mortality 7. Acute atelectasis. Present on chest x-ray, incentive spirometer Diet. Clears Prophylaxis. High risk patient, initiate pharmacologic prophylaxis once deemed safe by General Surgery Code. Full Disposition. Anticipated discharge uncertain this time, discussed with charge nurse, floor nurse, ICU nurse, patient remaining on 3 East at this time under close monitoring, will transfer to ICU if patient's status worsens. Subjective: Acute respiratory distress, anxiety, frustration Objective: Vital Signs Temp Pulse Resp BP Pulse Ox 37.3 C 84 18 80/61 L 92 02/01/18 15:48 02/01/18 15:48 02/01/18 15:48 02/01/18 15:48 02/01/18 15:48 Laboratory Results 02/01/18 05:14 02/01/18 05:14 01/31/18 02/01/18 02/02/18 05:59 05:59 05:59 Intake Total 650 Output Total 120 395 Balance 530 -395 - Physical Exam Constitutional: chronically ill appearing, obese, uncomfortable, No not in pain (Mild in right flank) Cardiovascular: edema (Trace bilateral lower extremities), No systolic murmur, No irregularly irregular, No tachycardia Respiratory: expiratory wheeze, inspiratory crackles (Bilateral bases), respiratory distress (Visibly tachypneic with labored breathing), No bronchial breath sounds Gastrointestinal: tenderness (Right hemidiaphragm), distension (Moderate), other (Ostomy is in place), No normoactive bowel sounds (Hypoactive bowel sounds ), No guarding Skin: other (No significant erythema or ecchymoses around the surgical sites) Neurologic: AAOx3 Psychiatric: anxious, other (Lethargic but arousable to voice), No agitated ICD10 Worksheet Patient Problems: Problems Problem Status Onset Abdominal pain Acute Intra-abdominal abscess Acute Perforated viscus Acute GI bleed Acute Anemia Acute LFT elevation Acute
[2018-02-01 19:09] LABS: PLATELET COUNT 192 10^3/uL (150-400)
[2018-02-01] MEDS: ENOXAPARIN 40 MG/0.4 ML SYR SC SCH (23:16)
[2018-02-02] MEDS: IPRATROPIUM/ALBUTEROL 3 ML DEYVIAL IH SCH ×4 (05:07→22:30)
[2018-02-02] MEDS: LEVOTHYROXINE 175 MCG TAB PO SCH (05:26)
[2018-02-02] MEDS: oxyCODONE IR 5 MG TAB PO PRN (05:29)
[2018-02-02] MEDS: ONDANSETRON 4 MG/2 ML VIAL IVP PRN (08:47)
[2018-02-02] MEDS: HYDROmorphone HCL/NS 0.5 MG/ML SYR IVP PRN ×3 (08:48→23:36)
[2018-02-02] MEDS: ENOXAPARIN 40 MG/0.4 ML SYR SC SCH ×2 (09:06→21:29)
[2018-02-02] MEDS ORDERED: METOCLOPRAMIDE 10 MG/2 ML VIAL IVP PRN (09:37)
[2018-02-02] MEDS: NS 1,000 ML IV SCH (09:59)
--- NOTE | 2018-02-02 10:55 | SOAPPROG ---
SOAP Progress Note Assessment/Plan: Assessment/Plan: 57-year-old female status post exploratory laparotomy, sigmoid colectomy and end colostomy with Herrera's pouch for perforated sigmoid diverticulitis - transferred to the floor yesterday, remains on 5 L nasal cannula. Discussed again the importance of incentive spirometry and walking with her. - her abdomen is distended, and appropriately tender. Her stoma is beefy red with some sweat in the appliance, no yuly stool or gas. Based upon her plain film of her abdomen yesterday and gross contamination within her abdomen I do anticipate an ileus. I told the patient that she needs to slow down with her drinking as she has been drinking a lot of liquids and I feel that this is contributing to her pain and distension, she did not really grasp this concept at the bedside today. 02/01/18 08:32 02/02/18 10:54 Subjective: Wants to drink Objective: Vital Signs Temp Pulse Resp BP Pulse Ox 37.1 C 91 16 115/73 94 02/02/18 08:00 02/02/18 08:00 02/02/18 08:00 02/02/18 08:00 02/02/18 08:00 Laboratory Results 02/02/18 04:28 02/02/18 04:28 02/01/18 02/02/18 02/03/18 05:59 05:59 05:59 Intake Total 650 1025 100 Output Total 120 1465 Balance 530 -440 100 ICD10 Worksheet Patient Problems: Problems Problem Status Onset Abdominal pain Acute Anemia Acute GI bleed Acute Intra-abdominal abscess Acute LFT elevation Acute Perforated viscus Acute
[2018-02-02] MEDS: FLUTICASONE/SALMETER 500/50MCG DISKUS IH SCH ×2 (11:40→22:30)
--- NOTE | 2018-02-02 11:44 | GOP ---
[f rep st] OPERATIVE REPORT DATE OF OPERATION: 02/01/2018 SURGEON: Bridger Ziegler MD BROOM BUILDER: None. ANESTHESIA: General endotracheal. ANESTHESIOLOGIST: Marshall Draper MD. PREOPERATIVE DIAGNOSIS: Perforated diverticulitis. POSTOPERATIVE DIAGNOSIS: Perforated diverticulitis, Hinchey Grade 3 PROCEDURE PERFORMED: 1. Exploratory laparotomy. 2. Sigmoid colectomy. 3. End colostomy with Herrera's pouch. 4. Abdominal washout. FINDINGS: The patient had gross purulence in her pelvis as well as throughout her abdomen. The site of pathology in her sigmoid colon was the distal sigmoid adjacent to the rectosigmoid junction disease portion, successfully removed, end -colostomy performed. SPECIMENS: Sigmoid colon. ESTIMATED BLOOD LOSS: 75 cc. DESCRIPTION OF PROCEDURE: The patient was greeted in the preoperative suite. Once again, risks, benefits, and alternatives were discussed. Consent was signed. She was then brought back to the operative suite, placed on the OR table in a supine position. After all anesthesia machines including SCDs were on and functioning, a World Health [employer] time-out was performed. After successful induction of general anesthesia, the patient's abdomen was prepped and draped in typical sterile fashion after placing her in low lithotomy with all pressure points appropriately padded. I entered the abdomen via a midline incision. I carried this down through the subcutaneous tissue and successfully entered the abdomen sharply. Once in the abdomen, I immediately encountered purulent material. A portion of which was sent for cultures. I made a generous midline incision. I successfully packed off the patient's small bowel and systematically ran her sigmoid colon into the pelvis. I identified the area of inflammation and likely perforation in the distal sigmoid colon. Proximal to this, the remainder of the sigmoid colon was redundant and for the most part healthy looking. The distal sigmoid colon and rectum had a significant amount of induration and was actually densely adherent to the patient's uterus and ovaries. After freeing these adhesions, I divided the sigmoid colon proximally. I then took down the mesentery with a Harmonic Scalpel distally to an area distal to the area of pathology. I then amputated the distal sigmoid colon at this site. Specimen was then passed off. I interrogated my rectal stump, which was intact and hemostatic. Mesentery was also hemostatic. I then systematically ran the small bowel, found no other significant findings other than purulent material throughout the patient's abdomen. I irrigated the patient's abdomen with 3 L of sterile saline noting clear effluent in the suction canister. A 10-Zambian flat MICKI was brought out through a separate stab incision in the patient's right lower quadrant and allowed to lay in the pelvis on the rectal stump. As the patient had a very redundant sigmoid colon, I only minimally mobilized the colon off the white line through a separate stab incision in the left upper quadrant adjacent to the patient's umbilicus. I made a defect in the patient's rectus and successfully brought the sigmoid colon out through this. Gloves, gown, clean closure were then brought in. I reapproximated the patient's midline fascia with a #1 PDS noting excellent fascial reapproximation. The subcutaneous tissue was irrigated with sterile saline. The significant amount of subcutaneous fat was reapproximated with a running 3-0 Vicryl and the skin was closed with donna. I then turned my attention toward fashioning my colostomy. It was brooked appropriately with multiple interrupted 3-0 Vicryl sutures noting excellent eversion of the distal colostomy. Dressings and a colostomy appliance were then successfully placed. The patient was then extubated in the operative suite and taken to the PACU in satisfactory condition. DRAINS: 10-Zambian flat MICKI in pelvis. COUNTS: All counts were reported as correct x2. /[id number]/MODL MTDD
--- NOTE | 2018-02-02 14:37 | HOSPPROG ---
Hospitalist Progress Note Assessment/Plan: Assessment: 57-year-old female presenting with acute perforated sigmoid diverticulitis and abscess requiring sigmoid colectomy, complicated by acute pulmonary insufficiency in the setting of chronic hypoxic respiratory failure Plan: 1. Perforated sigmoid diverticulitis. Acute, postop day 2 sigmoid colectomy with end colostomy and Herrera's pouch by Dr. Ziegler -day 3 antibiotics, continue ceftriaxone and metronidazole -d/w Dr. Ziegler, he recs de-escalate diet to only several ice chips every few hours, as her post-op ileus is likely to worsen symptomatically w/ increased PO intake -monitor fever curve, white blood cell count -ongoing ostomy care 2. Acute postoperative pulmonary insufficiency. Postoperatively the patient developed worsening hypoxia, increased tachypnea, and required stabilization on BiPAP in the step-down unit, her FiO2 was weaned and she was weaned on to 3 L nasal cannula today, but then experienced increased tachypnea and desaturations after transfer to the med surge unit, requiring up titration to 8 L -exact etiology is unclear, but I do not believe that the cause is related to the surgery, but rather her underlying obesity hypoventilation, COPD, abdominal pain with hypoventilation on chest x-ray -weaned to 5LPM, cont to wean 3. Chronic hypoxic respiratory failure. Likely secondary to a combination of underlying COPD and obesity hypoventilation syndrome, patient has 3 liters/ minute as her baseline 4. Transaminitis. Most likely secondary to hepatic steatosis, repeat complete metabolic profile in a.m. 5. Acute blood loss anemia. Hemoglobin 8.8, transfuse if Hgb < 7 or active bleeding today 6. Morbid obesity. BMI greater than 45, rendering higher risk of worsening morbidity and/or mortality 7. Acute atelectasis. Present on chest x-ray, incentive spirometer 8. SARAH. 2/2 reduced PO intake in setting of ileus, start on NS 75cc/hr and monitor for signs of vol overload 9. Acute post-op ileus. Dilated small bowel on x-ray (personally interpreted) w / hypoactive bowel sounds, nausea this AM w/ PO intake -de-escalated diet -PRN reglan as 1st choice for nausea Diet. Ice chips, IVF Prophylaxis. High risk patient, initiate pharmacologic prophylaxis once deemed safe by General Surgery Code. Full Disposition. Anticipated discharge uncertain this time, likely SNF once stabilized. High level of medical complexity, high risk of worsening morbidity/mortality 2/ 2 issues outlined above. Subjective: nausea this AM w/ PO intake, ongoing R lower abd pain Objective: Vital Signs Temp Pulse Resp BP Pulse Ox 37.1 C 91 16 115/73 94 02/02/18 08:00 02/02/18 08:00 02/02/18 08:00 02/02/18 08:00 02/02/18 08:00 Laboratory Results 02/02/18 04:28 02/02/18 04:28 02/01/18 02/02/18 02/03/18 05:59 05:59 05:59 Intake Total 650 1025 100 Output Total 120 1465 Balance 530 -440 100 - Physical Exam Constitutional: chronically ill appearing, obese, uncomfortable, No not in pain (mild) Cardiovascular: regular rate and rhythym, no murmur, rub, or gallop, No irregularly irregular, No tachycardia, No edema Respiratory: reduced air movement (bilat bases), No expiratory wheeze, No inspiratory crackles, No bronchial breath sounds, No respiratory distress Gastrointestinal: tenderness (R lower abd), distension (mild-moderate), No normoactive bowel sounds (hypoactive bowel sounds), No guarding Skin: other (no erythema around surg sites) Neurologic: AAOx3, sensation intact bilaterally, No weakness (motor 5/5 bilat LE ) Psychiatric: not encephalopathic, thought process linear, anxious, flat affect, No agitated ICD10 Worksheet Patient Problems: Problems Problem Status Onset Abdominal pain Acute Intra-abdominal abscess Acute Perforated viscus Acute GI bleed Acute Anemia Acute LFT elevation Acute
--- NOTE | 2018-02-02 15:58 | ASMTCMCOM ---
CM Note CM Note Notes: Pt is s/p exploratory lap and sigmoid colectomy 2/2 a perforated sigmoid diverticulitis. She is currently on 5L O2. PT is recommending SNF. Pt is a and lives in [place]. CM will follow for d/c needs. Date Signed: 02/02/2018 03:57 PM Electronically Signed By:ADWNA Cramer
[2018-02-03] MEDS: HYDROmorphone HCL/NS 0.5 MG/ML SYR IVP PRN ×4 (02:18→16:22)
[2018-02-03] MEDS: NS 1,000 ML IV SCH (03:29)
[2018-02-03] MEDS: NICOTINE 7 MG/24 HR PATCH TD SCH (05:22)
[2018-02-03] MEDS: LEVOTHYROXINE 175 MCG TAB PO SCH ×2 (05:22→05:23)
[2018-02-03] MEDS: IPRATROPIUM/ALBUTEROL 3 ML DEYVIAL IH SCH ×3 (06:37→15:22)
[2018-02-03] MEDS: ENOXAPARIN 40 MG/0.4 ML SYR SC SCH ×2 (08:11→20:24)
[2018-02-03] MEDS: ONDANSETRON 4 MG/2 ML VIAL IVP PRN ×2 (08:23→14:01)
[2018-02-03] MEDS: FLUTICASONE/SALMETER 500/50MCG DISKUS IH SCH ×2 (08:47→22:15)
--- NOTE | 2018-02-03 09:05 | SOAPPROG ---
SOAP Progress Note Assessment/Plan: Assessment/Plan: 57-year-old female status post exploratory laparotomy, sigmoid colectomy and end colostomy with Herrera's pouch for perforated sigmoid diverticulitis - VSS, HDS - Hb low this AM, transfusing. Likely 2/2 acute blood loss anemia - abdominal distention is a little better, had some bloody ostomy output yesterday some sweat in the bag this AM - ok for clears, really needs to go slow and not overdo it. 02/01/18 08:32 02/02/18 10:54 02/03/18 09:04 Subjective: tearful, desperately wants to eat Objective: Vital Signs Temp Pulse Resp BP Pulse Ox 37.2 C 79 16 107/56 L 95 02/02/18 23:20 02/03/18 08:47 02/03/18 08:47 02/02/18 23:20 02/03/18 08:47 Laboratory Results 02/03/18 04:37 02/02/18 04:28 02/02/18 02/03/18 02/04/18 05:59 05:59 05:59 Intake Total 0979 463 0440 Output Total 1465 125 Balance -440 -25 1223 ICD10 Worksheet Patient Problems: Problems Problem Status Onset Abdominal pain Acute Anemia Acute GI bleed Acute Intra-abdominal abscess Acute LFT elevation Acute Perforated viscus Acute
[2018-02-03] MEDS: oxyCODONE IR 5 MG TAB PO PRN ×2 (14:02→22:07)
--- NOTE | 2018-02-03 14:47 | ASMTCMCOM ---
CM Note CM Note Notes: CM spoke w/ Dr. Martinez regarding d/c POC. Therapies are recommending SNF. CM met w/ pt for dispo planning. CM provided pt list of SNFs. Pt reports that she wants to d/c home. CM will continue to follow up tomorrow. Plan: TBD Date Signed: 02/03/2018 02:47 PM Electronically Signed By:CHUN Sloan
--- NOTE | 2018-02-03 19:43 | HOSPPROG ---
Hospitalist Progress Note Assessment/Plan: Assessment: 57-year-old female presenting with acute perforated sigmoid diverticulitis and abscess requiring sigmoid colectomy, complicated by acute pulmonary insufficiency in the setting of chronic hypoxic respiratory failure Plan: 1. Perforated sigmoid diverticulitis. Acute, postop day 3 sigmoid colectomy with end colostomy and Herrera's pouch by Dr. Ziegler -day 4 antibiotics w/ Cx demonstrating reinoso-sensitive E. coli, continue ceftriaxone and metronidazole -adv clears today -ongoing ostomy care 2. Acute postoperative pulmonary insufficiency. Postoperatively the patient developed worsening hypoxia, increased tachypnea, and required stabilization on BiPAP in the step-down unit -exact etiology is unclear, but I do not believe that the cause is related to the surgery, but rather her underlying obesity hypoventilation, COPD, abdominal pain with hypoventilation on chest x-ray -weaned to 3LPM, now at baseline 3. Chronic hypoxic respiratory failure. Likely secondary to a combination of underlying COPD and obesity hypoventilation syndrome, patient has 3 liters/ minute as her baseline 4. Transaminitis. Most likely secondary to hepatic steatosis, repeat complete metabolic profile in a.m. 5. Acute blood loss anemia. Hemoglobin 6.9, transfuse 1u PRBC, some bloody fluid at ostomy 02/02 approx 100cc 6. Morbid obesity. BMI greater than 45, rendering higher risk of worsening morbidity and/or mortality 7. Acute atelectasis. Present on chest x-ray, incentive spirometer 8. SARAH. 2/2 reduced PO intake in setting of ileus, repeat Cr in A, increasing PO intake today 9. Acute post-op ileus. Dilated small bowel on x-ray -PRN reglan as 1st choice for nausea Diet. Clears Prophylaxis. High risk patient, initiate pharmacologic prophylaxis once deemed safe by General Surgery Code. Full Disposition. Anticipated discharge uncertain this time, likely SNF once stabilized. Subjective: patient is hungry Objective: Vital Signs Temp Pulse Resp BP Pulse Ox 36.6 C 80 16 118/81 H 94 02/03/18 16:23 02/03/18 16:23 02/03/18 15:36 02/03/18 16:23 02/03/18 16:23 Laboratory Results 02/03/18 04:37 02/03/18 04:37 02/02/18 02/03/18 02/04/18 05:59 05:59 05:59 Intake Total 8811 159 2440 Output Total 4615 125 90 [place] [id number] - Physical Exam Constitutional: not in pain, chronically ill appearing, obese, uncomfortable Cardiovascular: regular rate and rhythym, no murmur, rub, or gallop Respiratory: no respiratory distress, no rales or rhonchi, clear to auscultation Gastrointestinal: distension (moderate, ostomy and Colby in place), No normoactive bowel sounds (hypoactive bowel sounds), No tenderness, No guarding Neurologic: AAOx3, sensation intact bilaterally, No weakness Psychiatric: interacting appropriately, not anxious, not encephalopathic, thought process linear ICD10 Worksheet Patient Problems: Problems Problem Status Onset Abdominal pain Acute Intra-abdominal abscess Acute Perforated viscus Acute GI bleed Acute Anemia Acute LFT elevation Acute
[2018-02-03] MEDS: ACETAMINOPHEN 325 MG TAB PO PRN (20:23)
[2018-02-04] MEDS: IPRATROPIUM/ALBUTEROL 3 ML DEYVIAL IH SCH ×5 (03:17→21:42)
[2018-02-04] MEDS: LEVOTHYROXINE 175 MCG TAB PO SCH (05:10)
[2018-02-04] MEDS: oxyCODONE IR 5 MG TAB PO PRN ×4 (05:19→21:00)
[2018-02-04] MEDS: ENOXAPARIN 40 MG/0.4 ML SYR SC SCH ×2 (08:58→21:00)
[2018-02-04] MEDS: NICOTINE 7 MG/24 HR PATCH TD SCH (08:59)
--- NOTE | 2018-02-04 10:29 | SOAPPROG ---
SOAP Progress Note Assessment/Plan: Assessment/Plan: 57-year-old female status post exploratory laparotomy, sigmoid colectomy and end colostomy with Herrera's pouch for perforated sigmoid diverticulitis - VSS, HDS - Hb has responded well to transfusion, cont to monitor - abdomen less distended, stoma pink, stool in appliance - ok for reg diet, needs to go slow. - wants her service dog to visit, I think this would help her mental state drastically. 02/01/18 08:32 02/02/18 10:54 02/03/18 09:04 02/04/18 10:28 02/04/18 10:28 Subjective: tearful Objective: Vital Signs Temp Pulse Resp BP Pulse Ox 36.7 C 76 18 109/75 94 02/04/18 08:00 02/04/18 08:00 02/04/18 08:00 02/04/18 08:00 02/04/18 08:00 Laboratory Results 02/04/18 04:52 02/04/18 04:52 02/03/18 02/04/18 02/05/18 05:59 05:59 05:59 Intake Total 100 3023 Output Total 125 90 Balance -25 2933 ICD10 Worksheet Patient Problems: Problems Problem Status Onset Abdominal pain Acute Anemia Acute GI bleed Acute Intra-abdominal abscess Acute LFT elevation Acute Perforated viscus Acute
[2018-02-04] MEDS: FLUTICASONE/SALMETER 500/50MCG DISKUS IH SCH ×2 (10:42→21:38)
--- NOTE | 2018-02-04 11:37 | WOCRNPDOC ---
[facility] Advanced Assessment Note - Colostomy Assessment, Advanced Left Lower Abdomen Colostomy Stoma Colostomy Appliance Intact: Yes Colostomy Appliance Currently in Use: Two Piece Flat, 2 3/4, Cut to Fit Stoma Color: Red Stoma Turgor: Moist, Taught, Shiny Stoma Shape: Oval, Irregular Stoma Height: Protuding Excessively Colostomy Effluent: Serosangenous (transitional) Colostomy Details: End Colostomy Comment/Treatment Details: Ostomy teach one materials reviewed and given to patient. Discussed and demonstrated how to empty pouch and difference between one and two piece pouches. Patient demonstrated emptying technique back. Discussed closed end pouches vs drainable. Patient somewhat somulent and was 50% participatory. Will revisit tomorrow for first pouch change with pediatric rn Eleonora ROBLES taught patient today with Glory martinez.
[2018-02-04] MEDS: PIPERACILLIN/TAZO 4.5 GM/DEX 100 ML IV SCH ×3 (13:05→23:55)
--- NOTE | 2018-02-04 13:41 | GCON ---
[f rep st] CONSULTATION DATE OF CONSULTATION: 02/04/2018 REFERRING PHYSICIAN: Dr. Reba Man REASON FOR CONSULTATION: Perforated diverticulitis with abscess and bacteremia. CHIEF COMPLAINT: Abdominal pain. HISTORY OF PRESENT ILLNESS: This is a 57-year-old female with a past medical history significant for hypothyroidism, chronic back pain, who was admitted on the 31 of January due to increasing abdominal pain. She states that she has been having abdominal pain for the past 2-1/2 weeks and was unable to move her bowels for that period of time. She states that she was using enemas without any relief. She also states that she had not been eating much for probably 3 weeks due to increasing pain and constipation. She states she was having fevers and chills as an outpatient. She came into the ER and underwent a CAT scan. CAT scan revealed diverticulitis with a complex abscess collection measuring about 8 cm. She was taken to the OR on the 01 of February and was found to have gross contamination of the peritoneal cavity with a perforated colon. She underwent sigmoid colectomy with end colostomy, Herrera pouch, and a washout. Cultures taken at the time showed 3+ gram-positive rods, 2+ gram-positive cocci, and so far 3+ E coli and 4+ Bifidobacterium have grown out. She is also now bacteremic with 1 bottle of each set growing out gram- positive pleomorphic rods, preliminary ID as Bifidobacterium. She was placed on ceftriaxone and Flagyl initially on admission and is continued on that. She also came in with dysuria, and a urine culture grew out greater than 100,000, pansensitive E coli. Her urine analysis also showed pyuria. She also came in with an elevated white blood cell count of 10.8. She continues to have abdominal pain. She states that there has been gas bubbles in the colostomy bag. There are minimal smears of stool in there at present. She is on liquids at present. Infectious Disease is now consulted for further evaluation and opinion. REVIEW OF SYSTEMS: GENERAL: Had fevers and chills prior to admission. Currently afebrile. HEAD: Is complaining of some headaches. EYES: No change in vision. ENT: No sore throat, difficulty swallowing, ear pain, or ear drainage. CARDIOVASCULAR: No chest pain or rapid heartbeat. RESPIRATORY: No shortness of breath, cough, or sputum production. ABDOMEN: As above. : The dysuria has resolved. MUSCULOSKELETAL: Denies any joint pains or muscle aches. SKIN: Denies any rashes. Rest of 10-point review of systems essentially negative except as above. PAST MEDICAL HISTORY: Significant for hypothyroidism, chronic back pain, O2 at home. She has history of COPD and morbid obesity. PAST SURGICAL HISTORY: Significant for back surgery. ALLERGIES: No known drug allergies. SOCIAL HISTORY: She is a long-time smoker and drinks alcohol socially. She states that she does not take any probiotics. She does not even eat yogurt. Family is at bedside. FAMILY HISTORY: Significant for diabetes mellitus and hypertension. MEDICATIONS: As per DEC. PHYSICAL EXAMINATION: VITAL SIGNS: Temperature current 36.9, pulse is 76, blood pressure 114/76, respiratory rate is 12, saturation 92% on 3 L O2 via nasal cannula. GENERAL: She is resting in bed. No acute respiratory distress. Awake and alert but is somewhat sleepy. HEENT: Head is normocephalic, atraumatic. Eyes without conjunctival injection or petechiae. Oropharynx is clear. She has no posterior erythema or thrush. She has upper dentures. CARDIOVASCULAR: S1, S2. Regular rate and rhythm. No murmurs appreciated. RESPIRATORY: Clear to auscultation anteriorly. No rhonchi or rales appreciated. ABDOMEN: bowel sounds. Slightly distended. Midline incision with dnona in place. She has some mild periwound erythema noted. There is a colostomy in place. Tender to mild palpation. She has a MICKI drain in place with serosanguineous drainage. LABORATORY DATA: White blood count is 5.2, hemoglobin 9.2, platelets are 233. Chemistry: Sodium 143, potassium 3.8, chloride is 104, bicarb 28, BUN of 19, creatinine 0.9. AST is 32, ALT 84, alkaline phosphatase 176, total bilirubin 0.6. Urinalysis: Positive nitrites, leukocyte esterase is 2+, urine WBCs 50- 182, 4+ bacteria, trace epithelial cells. One bottle out of each set was Bifidobacterium and gram-positive pleomorphic rods identified respectively. Urine culture with greater than 100,000 E coli, pansensitive. Preliminary abdominal cultures are peritoneal cultures with E coli, pansensitive and Bifidobacterium. Chest x-ray: No acute infiltrates noted, mild peribronchial thickening. Imaging results have all been reviewed by me. ASSESSMENT: 1. Perforated diverticulitis with abscess, status post sigmoid colectomy with colostomy, Herrera pouch, and washout. 2. Bifidobacterium bacteremia. 3. Escherichia coli urinary tract infection. PLAN: This is a polymicrobial process as would be expected given such situation. Operative note was reviewed and details gross contamination of the peritoneal cavity. Cultures are still young especially the micro labs. So far , E coli and Bifidobacterium are isolated but still young. Await further maturity to better adjust antimicrobials. Patient has some mild dolores- incisional site erythema today not clearly identified on previous notes. Will discuss further with the surgery and hospitalist team. Given gross contamination of a peritoneal cavity and young cultures. Will broaden antimicrobials to Zosyn 4.5 g q.6 hours and discontinue ceftriaxone and Flagyl. Once cultures are resulted, would likely try to tailor down antimicrobials if possible. Concomitant fungal infection is likely low given more historically involved with upper GI perforations. Will continue to follow along. Patient continues to have significant abdominal pain. Labs are improved, which is reassuring. Care coordinated with the hospitalist team. I thank you very much for providing the opportunity to care for your patient in consultation. /[id number]/MODL MTDD
[2018-02-04] MEDS ORDERED: CEFEPIME HCL 2 GM in STERILE WATER INJ 12.5 ML IV SCH (14:00)
--- NOTE | 2018-02-04 14:12 | HOSPPROG ---
Hospitalist Progress Note Assessment/Plan: # Bifidobacterium bacteremia - with history of recent perforation- will need to be treated for true bacteremia - consulted Infectious Disease - continue metronidazole - continue cefepime IV # Perforated sigmoid diverticulitis. Acute, postop day 4 sigmoid colectomy with end colostomy and Herrera's pouch by Dr. Ziegler -day 5 antibiotics w/ Cx demonstrating reinoso-sensitive E. coli, continue metronidazole- changing ceftriaxone to cefepime -continue clears today -ongoing ostomy care # Acute hypoxic respiratory failure- chest x-ray(personally reviewed and interpreted) shows hypoventilation no infiltrates Patient remains somnolent on my examination suspect secondary to pain medications - wean oxygen as able - encourage ambulation # Chronic hypoxic respiratory failure. Likely secondary to a combination of underlying COPD and obesity hypoventilation syndrome, patient has 3 liters/ minute as her baseline # Transaminitis. Most likely secondary to hepatic steatosis, repeat complete metabolic profile in a.m. # Acute blood loss anemia. Hemoglobin 9.2 status post transfusion 1u PRBC overnight - continue to monitor closely # Morbid obesity. BMI greater than 45, rendering higher risk of worsening morbidity and/or mortality # SARAH. 2/2 reduced PO intake in setting of ileus- resolved # Acute post-op ileus. Dilated small bowel on x-ray -PRN reglan as 1st choice for nausea Diet. Clears Prophylaxis. High risk patient, initiate pharmacologic prophylaxis once deemed safe by General Surgery Code. Full Disposition. Anticipated discharge uncertain this time, likely SNF once stabilized. I have discussed the case with the RN and casework manager-patient is slow to improve will certainly need placement when stable for discharge Subjective: Feels weak Objective: Vital Signs Temp Pulse Resp BP Pulse Ox 36.9 C 76 12 114/76 93 02/04/18 11:32 02/04/18 11:32 02/04/18 11:32 02/04/18 11:32 02/04/18 11:32 Laboratory Results 02/04/18 04:52 02/04/18 04:52 02/03/18 02/04/18 02/05/18 05:59 05:59 05:59 Intake Total 100 3023 540 Output Total 125 90 Balance -25 2933 540 - Physical Exam Constitutional: chronically ill appearing, obese Eyes: anicteric sclera Ears, Nose, Mouth, Throat: moist mucous membranes Cardiovascular: regular rate and rhythym Respiratory: no respiratory distress Gastrointestinal: normoactive bowel sounds Genitourinary: no bladder fullness Skin: warm Musculoskeletal: No asymmetric calves Neurologic: AAOx3 Psychiatric: interacting appropriately Lymph, Heme, Immunologic: no cervical LAD ICD10 Worksheet Patient Problems: Problems Problem Status Onset Abdominal pain Acute Anemia Acute GI bleed Acute Intra-abdominal abscess Acute LFT elevation Acute Perforated viscus Acute
--- NOTE | 2018-02-04 15:10 | ASMTCMCOM ---
CM Note CM Note Notes: CM spoke w/ Eleonora RN a braeden Man regarding d/c POC. Pts blood cultures were positive. ID has been consulted. CM met w/ pt for dispo planning. Pt would like to think about her d/c options. Pt requested that CM checks back in tomorrow. Pt has an emotional support dog that is important for her. Unfortunately, due to policy she cannot have her dog here at the hospital. CM informed pt that [facility] allows her dog to visit all day long as long as the dog doesn't stay overnight. CM to follow. Plan: TBD Date Signed: 02/04/2018 03:03 PM Electronically Signed By:CHUN Sloan
[2018-02-04] MEDS: ACETAMINOPHEN 325 MG TAB PO PRN (20:59)
[2018-02-04] MEDS: NS 1,000 ML IV SCH (21:01)
[2018-02-05] MEDS: oxyCODONE IR 5 MG TAB PO PRN ×4 (03:53→23:03)
[2018-02-05] MEDS: IPRATROPIUM/ALBUTEROL 3 ML DEYVIAL IH SCH ×6 (05:20→20:47)
[2018-02-05] MEDS: LEVOTHYROXINE 175 MCG TAB PO SCH (05:57)
[2018-02-05] MEDS: PIPERACILLIN/TAZO 4.5 GM/DEX 100 ML IV SCH ×2 (05:57→11:46)
[2018-02-05] MEDS: NS 1,000 ML IV SCH (08:58)
[2018-02-05] MEDS: NICOTINE 7 MG/24 HR PATCH TD SCH (10:02)
[2018-02-05] MEDS: FLUTICASONE/SALMETER 500/50MCG DISKUS IH SCH ×2 (10:03→20:50)
[2018-02-05] MEDS: ENOXAPARIN 40 MG/0.4 ML SYR SC SCH ×2 (10:06→23:03)
--- NOTE | 2018-02-05 12:19 | WOCRNPDOC ---
[facility] Advanced Assessment Note - Colostomy Assessment, Advanced Left Lower Abdomen Colostomy Stoma Colostomy Appliance Intact: No (some drainage under appliance) Colostomy Appliance Currently in Use: Two Piece Flat, 2 3/4, Cut to Fit Stoma Color: Red Stoma Turgor: Moist, Taught, Shiny Stoma Shape: Oval, Irregular Stoma Height: Protruding Mucocutaneus Junction: Intact Colostomy Effluent: Fecal Colostomy Details: Colectomy, End, Herrera's Pouch Colostomy Comment/Treatment Details: Removed appliance with adhesive remover, found small amount of drainage under barrier. Stoma and peristomal skin cleaned with washcloths. New 2 piece appliance measured and cut to fit around stoma, and wafer securely placed with pouch. Ostomy teach day 2 reviewed and dropped off, "homework" assigned to patient but she refused. Provided education to patient re: emptying the bag, when new appliance needed, how to clean the stoma , and how to place the new appliance. Patient agreed that a 1 piece system would work better for her. Verbal consent received for secure start and secure start initiated. Patient stated that she found the stoma "disgusting", and had minimal participation in the change, but was able to teach-back how to connect the two piece appliance. Explained to patient that inpatient teaching will involve 3 visits from wound care team, with patient participating more in next session. Informed patient that there will be 2 more education sessions. Glory LUNDBERG assisted with teaching and appliance change.
--- NOTE | 2018-02-05 12:57 | HOSPPROG ---
Hospitalist Progress Note Assessment/Plan: # Bifidobacterium bacteremia - 2/2 recent perforated diverticula - ID consult appreciated, atbx broadened to zosyn # Perforated sigmoid diverticulitis. POD 5 from sigmoid colectomy with end colostomy and Herrera's pouch by Dr. Ziegler -cont atbx as above -advance diet to regular per surg -ongoing ostomy care # Acute on chronic hypoxic respiratory failure- in setting of COPD and OHS, chest x-ray(personally reviewed and interpreted) shows hypoventilation no infiltrates. Back to baseline O2 requirement of 3 LPM. - encourage ambulation # Transaminitis. Most likely secondary to hepatic steatosis, trended down to near normal - outpt f/u # Acute blood loss anemia. Hemoglobin 9.2 status post transfusion 1u PRBC overnight. No e/o active bleeding. - continue to monitor closely # Morbid obesity. BMI greater than 45, rendering higher risk of worsening morbidity and/or mortality # SARAH. 2/2 reduced PO intake in setting of ileus- resolved # Acute post-op ileus. Dilated small bowel on x-ray, clinically improved. -PRN reglan as 1st choice for nausea Diet. Clears Prophylaxis. Lovenox Code. Full Disposition. Anticipated discharge uncertain this time, likely SNF once stabilized. Subjective: Pt doing ok. Still some pain. She is ambulating with walker. + ostomy output. No fevers/chills. No N/V. Objective: Vital Signs Temp Pulse Resp BP Pulse Ox 37.2 C 78 12 94/62 L 95 02/05/18 11:49 02/05/18 11:49 02/05/18 11:49 02/05/18 11:49 02/05/18 11:49 Laboratory Results 02/05/18 05:00 02/05/18 05:00 02/04/18 02/05/18 02/06/18 05:59 05:59 05:59 Intake Total 3023 2130 Output Total 90 890 185 Balance 2933 1240 -185 - Physical Exam Constitutional: no apparent distress, obese Eyes: PERRL Ears, Nose, Mouth, Throat: moist mucous membranes Cardiovascular: regular rate and rhythym Respiratory: no respiratory distress Gastrointestinal: normoactive bowel sounds, other (soft, obese, appropriate TTP , no r/r/g, +BS, ostomy functioning) Skin: warm Musculoskeletal: full muscle strength Neurologic: AAOx3 Psychiatric: interacting appropriately ICD10 Worksheet Patient Problems: Problems Problem Status Onset Abdominal pain Acute Anemia Acute GI bleed Acute Intra-abdominal abscess Acute LFT elevation Acute Perforated viscus Acute
[2018-02-05] MEDS: PIPERACILLIN/TAZO 3.375 GM/DEX 50 ML IV SCH ×3 (13:31→23:03)
--- NOTE | 2018-02-05 15:46 | SOAPPROG ---
SOAP Progress Note Assessment/Plan: Assessment/Plan: 57yo F POD#4 s/p open sigmoidectomy with end colostomy and Herrera's by Dr. Ziegler for perforated diverticulitis Culture showed bifidobacterium breve, e coli. IV antibiotics Pain controlled - transition to PO meds ABLA- H/H improved. monitor Regular diet + Flatus and BM PT/OT Ostomy education Appreciate hospitalists management of comorbidities Dispo: Will need SNF after d/c S: feeling well today. just walked with OT. not having any pain. no nausea. passing gas and stool into appliance O: sitting in chair, comfortable, NAD No increased WOB, supplemental O2 +BS. Abd slightly distended, nontender. LLQ ostomy with good profile, stool in appliance Midline incision with min surrounding erythema. No drainage RLQ MICKI drain serosanguinous to bulb suction Objective: Vital Signs Temp Pulse Resp BP Pulse Ox 37.2 C 78 12 94/62 L 95 02/05/18 11:49 02/05/18 11:49 02/05/18 11:49 02/05/18 11:49 02/05/18 11:49 Laboratory Results 02/05/18 05:00 02/05/18 05:00 02/04/18 02/05/18 02/06/18 05:59 05:59 05:59 Intake Total 3023 2130 Output Total 90 890 185 Balance 2933 1240 -185 ICD10 Worksheet Patient Problems: Problems Problem Status Onset Abdominal pain Acute Anemia Acute GI bleed Acute Intra-abdominal abscess Acute LFT elevation Acute Perforated viscus Acute
--- NOTE | 2018-02-05 18:22 | PCMIDPN ---
Assessment/Plan: Assessment/Plan: * Perforated diverticulitis with gross peritoneal contamination/polymicrobial cultures status post incision and drainage with sigmoid colectomy: Continue Zosyn pending additional cultures. No Pseudomonas isolated to date so will decrease Zosyn dose to 3.375 g IV Q 6 hr. Continue to follow cultures with antibiotic adjustment accordingly. Anticipate will need 2 week course of IV antibiotic therapy based on clinical findings and peritoneal contamination. * Bifidobacterium bacteremia: Secondary to perforated diverticulitis. Covered by Zosyn. * E coli UTI: Covered by above. 02/05/18 18:19 02/05/18 18:22 Subjective: Patient feels better with mild abdominal pain. Objective: Vital Signs Temp Pulse Resp BP Pulse Ox 36.9 C 74 18 109/72 97 02/05/18 16:00 02/05/18 16:00 02/05/18 16:00 02/05/18 16:00 02/05/18 16:00 Laboratory Results 02/05/18 05:00 02/05/18 05:00 02/04/18 02/05/18 02/06/18 05:59 05:59 05:59 Intake Total 3023 2130 2883 Output Total 90 890 385 Balance 2933 1240 2498 Zosyn # 2 Blood cultures 01/31/2018 2/2 Bifidobacterium Abscess cultures with growth of E coli, Bifidobacterium Urine culture with growth of E coli - Physical Exam General Appearance: alert, no apparent distress, obese EENT: No scleral icterus, No thrush Respiratory: lungs clear, No respiratory distress Cardiac/Chest: regular rate, rhythm Abdomen: tender (Mild diffusely), other (Midline incision with mild erythema at margins; stoma pink) ICD10 Worksheet Patient Problems: Problems Problem Status Onset Abdominal pain Acute Anemia Acute GI bleed Acute Intra-abdominal abscess Acute LFT elevation Acute Perforated viscus Acute
[2018-02-05] MEDS ORDERED: ALTEPLASE 2 MG VIAL IVP PRN (19:00)
[2018-02-06] MEDS: NS 1,000 ML IV SCH (02:37)
[2018-02-06] MEDS: IPRATROPIUM/ALBUTEROL 3 ML DEYVIAL IH SCH ×3 (05:42→16:55)
[2018-02-06] MEDS: PIPERACILLIN/TAZO 3.375 GM/DEX 50 ML IV SCH ×3 (06:09→10:23)
[2018-02-06] MEDS: oxyCODONE IR 5 MG TAB PO PRN ×3 (06:09→18:07)
[2018-02-06] MEDS: LEVOTHYROXINE 175 MCG TAB PO SCH (06:09)
[2018-02-06] MEDS: ENOXAPARIN 40 MG/0.4 ML SYR SC SCH ×2 (10:22→22:04)
[2018-02-06] MEDS: NICOTINE 7 MG/24 HR PATCH TD SCH (10:23)
[2018-02-06] MEDS: FLUTICASONE/SALMETER 500/50MCG DISKUS IH SCH ×2 (10:29→20:47)
--- NOTE | 2018-02-06 11:51 | PDRADPN ---
Radiology Procedure Note Date of Procedure: 02/06/18 Radiologist: Preston Aldridge Anesthesia: Local (Specify) Pre-op Diagnosis: infection Post-op Diagnosis: same Indication: venous access for abx Procedure: rue sl picc Finding(s): tip of picc at cavoatrial junction. ok to use Inf/Abcess present in the surg proc area at time of surgery?: No EBL: Minimal Complications: none
--- NOTE | 2018-02-06 12:13 | PCMIDPN ---
Assessment/Plan: Assessment: Perforated diverticulitis status post drainage. Patient is being managed on IV Zosyn. Patient was bacteremic with a bifidobacterium. This is covered by beta lactams well. E coli in operative drainage culture as well. Also well covered by IV Zosyn. Patient is generally improving. Probable E coli UTI. Plan: 1. Continue IV Zosyn at current dose. Plan for 2 week duration of treatment. 2. Follow clinical course. Subjective: Patient is resting in her hospital bed. States that she still feels poorly. Complains of heaviness in her abdomen. No fevers or chills. Appears to be tolerating the Zosyn without issue. Objective: Zosyn # 3 Vital Signs Temp Pulse Resp BP Pulse Ox 36.7 C 71 14 93/65 L 93 02/06/18 10:59 02/06/18 10:59 02/06/18 10:59 02/06/18 10:59 02/06/18 10:59 Laboratory Results 02/05/18 05:00 02/05/18 05:00 02/05/18 02/06/18 02/07/18 05:59 05:59 05:59 Intake Total 2130 3583 2984 Output Total 890 1420 Balance 1240 2163 2984 - Physical Exam General Appearance: WD/WN, alert, obese, non-toxic Respiratory: lungs clear, normal breath sounds, No respiratory distress Cardiac/Chest: regular rate, rhythm, No tachycardia Abdomen: soft, distended, No non-tender Skin: normal color, warm/dry, No rash Neuro/Psych: alert, normal mood/affect, oriented x 3 ICD10 Worksheet Patient Problems: Problems Problem Status Onset Abdominal pain Acute Anemia Acute GI bleed Acute Intra-abdominal abscess Acute LFT elevation Acute Perforated viscus Acute
--- NOTE | 2018-02-06 12:53 | HOSPPROG ---
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 POD 6 from sigmoid colectomy with end colostomy and Herrera's pouch by Dr. Ziegler -cont atbx as above -tolerating regular diet -ongoing ostomy care # Acute on chronic hypoxic respiratory failure- in setting of COPD and OHS, chest x-ray(personally reviewed and interpreted) shows hypoventilation no infiltrates. Back to baseline O2 requirement of 3 LPM. - encourage ambulation # Transaminitis. Most likely secondary to hepatic steatosis, trended down to near normal - outpt f/u # Acute blood loss anemia. Hemoglobin 9.2 s/p 1 u prbc's. No e/o active bleeding. - continue to monitor # Morbid obesity. BMI greater than 45, rendering higher risk of worsening morbidity and/or mortality # SARAH. 2/2 reduced PO intake in setting of ileus- resolved # Acute post-op ileus. Dilated small bowel on x-ray, clinically improved. -PRN reglan as 1st choice for nausea Diet. Clears Prophylaxis. Lovenox Code. Full Disposition. Anticipated discharge uncertain this time, will need SNF Subjective: Pt tearful today, "I can't even get up to go to the bathroom". C/O pain. Denies CP or SOB. No orthopnea, lying supine and not SOB. Tolerating po. No fevers. +BM Objective: Vital Signs Temp Pulse Resp BP Pulse Ox 36.7 C 71 14 93/65 L 93 02/06/18 10:59 02/06/18 10:59 02/06/18 10:59 02/06/18 10:59 02/06/18 10:59 Laboratory Results 02/05/18 05:00 02/05/18 05:00 02/05/18 02/06/18 02/07/18 05:59 05:59 05:59 Intake Total 2130 3583 2984 Output Total 890 1420 Balance 1240 2163 2984 - Physical Exam Constitutional: no apparent distress, obese Eyes: PERRL Ears, Nose, Mouth, Throat: moist mucous membranes Cardiovascular: regular rate and rhythym Respiratory: no respiratory distress, reduced air movement Gastrointestinal: normoactive bowel sounds, other (soft, obese, incision c/d/i, ostomy functioning, ) Skin: warm Musculoskeletal: generalized weakness Neurologic: AAOx3 Psychiatric: interacting appropriately ICD10 Worksheet Patient Problems: Problems Problem Status Onset Abdominal pain Acute Anemia Acute GI bleed Acute Intra-abdominal abscess Acute LFT elevation Acute Perforated viscus Acute
--- NOTE | 2018-02-06 15:48 | ASMTCMCOM ---
CM Note CM Note Notes: Today SWer met w/ Pt. in her room. Pt. w/ closed eyes seeminly in pain. SWer got bedside RN and power plant superintendent to help her adjust to a more comfortable position. Pt. communicated w/ SWer with her eyes closed. Pt. consented to SWer making referrals to SNFs on her behalf. Pt. confirmed that she would like to choose between SNFs in [facility], not in [place] where she lives. Today Pt. accepted to [facility]. Await response from [facility]. Will follow Pt. to determine her choice for SNF. Date Signed: 02/06/2018 03:47 PM Electronically Signed By:Michelle Turner LCSW
[2018-02-07] MEDS: PIPERACILLIN/TAZO 3.375 GM/DEX 50 ML IV SCH ×3 (00:18→11:49)
[2018-02-07] MEDS: oxyCODONE IR 5 MG TAB PO PRN ×3 (00:44→14:36)
[2018-02-07] MEDS: IPRATROPIUM/ALBUTEROL 3 ML DEYVIAL IH SCH ×3 (01:56→10:52)
[2018-02-07] MEDS: LEVOTHYROXINE 175 MCG TAB PO SCH (05:28)
[2018-02-07] MEDS: NICOTINE 7 MG/24 HR PATCH TD SCH ×2 (09:27→09:40)
[2018-02-07] MEDS: ENOXAPARIN 40 MG/0.4 ML SYR SC SCH (09:37)
[2018-02-07] MEDS: FLUTICASONE/SALMETER 500/50MCG DISKUS IH SCH (10:42)
--- NOTE | 2018-02-07 11:02 | PCMIDPN ---
Assessment/Plan: Assessment/Plan: * Perforated diverticulitis with gross peritoneal contamination/polymicrobial cultures status post incision and drainage with sigmoid colectomy: Cultures without growth of Pseudomonas. Will therefore transition Zosyn to Unasyn. Anticipate 2 weeks of IV antibiotic therapy. * Bifidobacterium bacteremia: Secondary to perforated diverticulitis. Will be covered by Unasyn. * E coli UTI: Covered by above. 02/07/18 11:00 Subjective: Patient complains of abdominal pain "heavy sensation in abdomen" Objective: Vital Signs Temp Pulse Resp BP Pulse Ox 37.1 C 71 16 110/69 93 02/07/18 07:16 02/07/18 07:16 02/07/18 07:16 02/07/18 07:16 02/07/18 07:16 Laboratory Results 02/05/18 05:00 02/05/18 05:00 02/06/18 02/07/18 02/08/18 05:59 05:59 05:59 Intake Total 3583 3284 Output Total 1420 450 Balance 2163 2834 Zosyn # 4 Abdominal cultures with growth of E coli and Bifidobacterium - Physical Exam General Appearance: alert, no apparent distress, obese EENT: No scleral icterus, No thrush Respiratory: lungs clear, No respiratory distress Cardiac/Chest: regular rate, rhythm Abdomen: tender (Mild lower quadrants), other (Incision intact without erythema or drainage; MICKI drain with scant bloody output), No distended Skin: No rash ICD10 Worksheet Patient Problems: Problems Problem Status Onset Abdominal pain Acute Anemia Acute GI bleed Acute Intra-abdominal abscess Acute LFT elevation Acute Perforated viscus Acute
--- NOTE | 2018-02-07 12:50 | HOSPPROG ---
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 POD 7 from sigmoid colectomy with end colostomy and Herrera's pouch by Dr. Ziegler -cont atbx as above -tolerating regular diet -ongoing ostomy care -still has drain, surgery to evaluate for removal if appropriate # Acute on chronic hypoxic respiratory failure- in setting of COPD and OHS, chest x-ray(personally reviewed and interpreted) shows hypoventilation no infiltrates. Back to baseline O2 requirement of 3 LPM. - encourage ambulation # Transaminitis. Most likely secondary to hepatic steatosis, trended down to near normal - outpt f/u # Acute blood loss anemia. Hemoglobin 9.2 s/p 1 u prbc's. No e/o active bleeding. - continue to monitor # Morbid obesity. BMI greater than 45, rendering higher risk of worsening morbidity and/or mortality # SARAH. 2/2 reduced PO intake in setting of ileus- resolved # Acute post-op ileus. Dilated small bowel on x-ray, clinically improved. -PRN reglan as 1st choice for nausea Diet. Regular Prophylaxis. Lovenox Code. Full Disposition. Anticipated discharge uncertain this time, will need SNF, likely in 1-2 days Subjective: Pt doing ok. Pain controlled. She seems depressed. Doesn't want to walk. Feels she isn't getting better fast enough. No fevers. No N/V. Objective: Vital Signs Temp Pulse Resp BP Pulse Ox 36.9 C 83 18 111/74 91 L 02/07/18 11:34 02/07/18 11:34 02/07/18 11:34 02/07/18 11:34 02/07/18 11:34 Laboratory Results 02/05/18 05:00 02/05/18 05:00 02/06/18 02/07/18 02/08/18 05:59 05:59 05:59 Intake Total 3583 3284 Output Total 1420 450 Balance 2163 2834 - Physical Exam Constitutional: no apparent distress, obese Eyes: PERRL Ears, Nose, Mouth, Throat: moist mucous membranes Cardiovascular: regular rate and rhythym Respiratory: no respiratory distress, reduced air movement Gastrointestinal: normoactive bowel sounds, soft, non-tender abdomen, other ( incision c/d/i, drain present with serosanguinous output) Skin: warm Musculoskeletal: generalized weakness Neurologic: AAOx3 Psychiatric: interacting appropriately, depressed ICD10 Worksheet Patient Problems: Problems Problem Status Onset Abdominal pain Acute Anemia Acute GI bleed Acute Intra-abdominal abscess Acute LFT elevation Acute Perforated viscus Acute
--- NOTE | 2018-02-07 13:35 | SOAPPROG ---
SOAP Progress Note Assessment/Plan: Assessment/Plan: 57-year-old female status post exploratory laparotomy, sigmoid colectomy and end colostomy with Herrera's pouch for perforated sigmoid diverticulitis - VSS, HDS - Hb stable - abdomen is soft and aTTP. Her stoma is pink and emptying apropriately. - I removed the MICKI today, uneventfully - I am ok with dc to SNF. She needs he donna out late next week which can be done there - follow up with me in 2 weeks, we will discuss process of abx, imaging and ultimately takedown if thats what she desires 02/01/18 08:32 02/02/18 10:54 02/03/18 09:04 02/04/18 10:28 02/04/18 10:28 02/07/18 13:33 Subjective: Doing better, pain appears well controlled Objective: Vital Signs Temp Pulse Resp BP Pulse Ox 36.9 C 83 18 111/74 91 L 02/07/18 11:34 02/07/18 11:34 02/07/18 11:34 02/07/18 11:34 02/07/18 11:34 Laboratory Results 02/05/18 05:00 02/05/18 05:00 02/06/18 02/07/18 02/08/18 05:59 05:59 05:59 Intake Total 3583 3284 Output Total 1420 450 Balance 2163 2834 ICD10 Worksheet Patient Problems: Problems Problem Status Onset Abdominal pain Acute Anemia Acute GI bleed Acute Intra-abdominal abscess Acute LFT elevation Acute Perforated viscus Acute
--- NOTE | 2018-02-07 13:36 | PDIAF ---
- Diagnosis Diagnosis: perforated sigmoid diverticulitis Code Status: Full Code - Medication Management Discharge Medications: Medications to Continue on Transfer Albuterol [Proventil Inhaler HFA (*)] 1 - 2 puffs IH Q4H PRN 01/31/18 [Last Taken Unknown] Fluticasone/Salmeter 500/50Mcg [Advair 500/50 (*)] 1 puffs IH BID 01/31/18 [ Last Taken Unknown] Furosemide [Lasix 20 MG (*)] 20 mg PO DAILY 01/31/18 [Last Taken 01/28/18] Levothyroxine [Synthroid 175 mcg (*)] 175 mcg PO DAILY06 01/31/18 [Last Taken ] oxyCODONE IR [Oxycodone Ir (*)] 30 mg PO Q6 PRN 01/31/18 [Last Taken 01/25/18] Discharge Medications: Refer to the Discharge Home Medication list for PRN reason. - Orders Sutures/De Site: midline abdomen Date to Remove Sutures/[place]: 02/14/18 - Follow Up Care Current Providers and Referrals: Tre Madrid DO [Primary Care Provider] - As per Instructions Bridger Ziegler MD [Medical Doctor] - follow up in 2 weeks
--- NOTE | 2018-02-07 13:58 | PDIAF ---
- Diagnosis Diagnosis: perforated sigmoid diverticulitis Code Status: Full Code - Medication Management Discharge Medications: Medications to Continue on Transfer Albuterol [Proventil Inhaler HFA (*)] 1 - 2 puffs IH Q4H PRN 01/31/18 [Last Taken Unknown] Fluticasone/Salmeter 500/50Mcg [Advair 500/50 (*)] 1 puffs IH BID 01/31/18 [ Last Taken Unknown] Furosemide [Lasix 20 MG (*)] 20 mg PO DAILY 01/31/18 [Last Taken 01/28/18] Levothyroxine [Synthroid 175 mcg (*)] 175 mcg PO DAILY06 01/31/18 [Last Taken ] Acetaminophen [Tylenol 325mg (*)] 650 mg PO Q4HRS PRN tab 02/07/18 [Last Taken Unknown] Ampicillin/Sulbactam [Unasyn] 3 gm IV Q6HRS vial 02/07/18 [Last Taken Unknown] Ipratropium/Albuterol [Duoneb (*)] 3 ml IH QID #120 deyvial 02/07/18 [Last Taken Unknown] Ondansetron Odt [Zofran Odt 4 mg (*)] 4 mg PO Q4HRS PRN tab 02/07/18 [Last Taken Unknown] oxyCODONE IR [Oxycodone Ir (*)] 5 - 10 mg PO Q3HRS PRN #20 tab 02/07/18 [Last Taken Unknown] Discharge Medications: Refer to the Discharge Home Medication list for PRN reason. PICC Care - Routine: Yes - Orders Services needed: Registered Nurse, Physical Therapy, Occupational Therapy Oxygen: 2 LPM Diet Recommendation: no restrictions on diet Sutures/De Site: midline abdomen Date to Remove Sutures/De: 02/14/18 - Labs/Radiology BMP Date: 02/13/18 (results to [facility]) - Follow Up Care Current Providers and Referrals: Tre Madrid DO [Primary Care Provider] - As per Instructions Bridger Ziegler MD [Medical Doctor] - follow up in 2 weeks
--- NOTE | 2018-02-07 14:05 | PDIAF ---
- Diagnosis Diagnosis: perforated sigmoid diverticulitis Code Status: Full Code - Medication Management Discharge Medications: Medications to Continue on Transfer Albuterol [Proventil Inhaler HFA (*)] 1 - 2 puffs IH Q4H PRN 01/31/18 [Last Taken Unknown] Fluticasone/Salmeter 500/50Mcg [Advair 500/50 (*)] 1 puffs IH BID 01/31/18 [ Last Taken Unknown] Furosemide [Lasix 20 MG (*)] 20 mg PO DAILY 01/31/18 [Last Taken 01/28/18] Levothyroxine [Synthroid 175 mcg (*)] 175 mcg PO DAILY06 01/31/18 [Last Taken ] Acetaminophen [Tylenol 325mg (*)] 650 mg PO Q4HRS PRN tab 02/07/18 [Last Taken Unknown] Ampicillin/Sulbactam [Unasyn] 3 gm IV Q6HRS vial 02/07/18 [Last Taken Unknown] Ipratropium/Albuterol [Duoneb (*)] 3 ml IH QID #120 deyvial 02/07/18 [Last Taken Unknown] Ondansetron Odt [Zofran Odt 4 mg (*)] 4 mg PO Q4HRS PRN tab 02/07/18 [Last Taken Unknown] oxyCODONE IR [Oxycodone Ir (*)] 5 - 10 mg PO Q3HRS PRN #20 tab 02/07/18 [Last Taken Unknown] Custodial Antibiotics: Unasyn 3 g IV q.6 hours Custodial Antibiotic Stop Date: 02/17/18 Discharge Medications: Refer to the Discharge Home Medication list for PRN reason. PICC Care - Routine: Yes - Orders Services needed: Registered Nurse, Physical Therapy, Occupational Therapy Oxygen: 2 LPM Diet Recommendation: no restrictions on diet Sutures/De Site: midline abdomen Date to Remove Sutures/De: 02/14/18 - Labs/Radiology BMP Date: 02/13/18 (results to [facility] S[facility]ERS) CBC w/diff Date: 02/11/18 CMP Date: 02/11/18 Call or Fax Lab and Imaging Results to: Fax lab results to Dr. Cutler [phone] - Follow Up Care Current Providers and Referrals: Tre Madrid DO [Primary Care Provider] - As per Instructions Bridger Ziegler MD [Medical Doctor] - follow up in 2 weeks Verónica Shelton MD [Medical Doctor] - 02/17/18 11:00 am
--- NOTE | 2018-02-07 15:14 | WOCRNPDOC ---
[facility] Advanced Assessment Note - Colostomy Assessment, Advanced Left Lower Abdomen Colostomy Stoma Colostomy Appliance Intact: Yes Colostomy Appliance Currently in Use: Two Piece Flat, 2 3/4, Cut to Fit Stoma Color: Red Stoma Turgor: Moist Stoma Shape: Round Stoma Height: Protruding Mucocutaneus Junction Comment: barrier intact; did not assess. Colostomy Effluent: Serosangenous Colostomy Details: End, Herrera's Pouch Colostomy Comment/Treatment Details: Rounded on patient for teaching and assessment this afternoon. She said "we just changed it this morning," but her nurse reported that only the pouch was changed this morning. The barrier was changed yesterday, and is currently intact. She said "I just can't today." I went over some general teaching, and she was intermittently tearful and somnolent. Patient will need a lot of ongoing teaching and reinforcement, as she is struggling with having an ostomy.
[2018-02-07 15:29] VITALS: BP 114/76
[2018-02-07] MEDS ORDERED: AMPICILLIN/SULBACTAM 3 GM VIAL IV SCH (18:00)
--- NOTE | 2018-02-07 20:28 | GDS ---
[f rep st] DISCHARGE SUMMARY DISCHARGE DIAGNOSES: 1. Perforated sigmoid diverticulitis, postoperative day 7 from sigmoid colectomy with end colostomy and Herrera's pouch by Dr. Ziegler. 2. Bifidobacterium bacteremia secondary perforated diverticula continuing on intravenous Zosyn thera py at discharge. 3. Acute on chronic hypoxemic respiratory failure in the setting of chronic obstructive pulmonary di sease and obesity hypoventilation syndrome discharging on her baseline oxygen requirement of 3 L/nichole te. 4. Transaminitis, improving. 5. Acute blood loss anemia, stable. 6. Severe obesity with a body mass index greater than 45. 7. Acute kidney injury, resolved. 8. Postoperative ileus, resolved. CONSULTANTS: 1. Dr. Bridger Ziegler, General Surgery. 2. Dr. Audie Alford, Pulmonology Critical Care. 3. Dr. Verónica Shelton, Infectious Disease. HISTORY OF PRESENT ILLNESS: For details, please see the history and physical dated January 31, 2018. In brief, the patient is 57-year-old female who presents to the emergency department with 6 days of a bdominal pain. CT imaging revealed perforated diverticulitis with interloop abscess. HOSPITAL COURSE: General surgery consult was obtained. She was taken to the operating room that [facility] where she underwent exploratory laparotomy, colectomy, and colostomy. She was treated with broa d-spectrum antibiotics. Her blood cultures grew Bifidobacterium breve, as well as E. coli on her uri ne culture. Infectious disease consult was obtained. She has been continued on IV Zosyn therapy wit h plans to complete 2 weeks of IV antibiotic therapy with a stop date of February 17 per Infectious Di sease. A PICC line was placed prior to discharge after her repeat blood cultures were negative. Her postoperative course was complicated by a postoperative ileus, which has since resolved. In [facility], she is noted to have chronic hypoxemic respiratory failure in the setting of COPD and obesity hypo ventilation syndrome. She is discharged on her baseline oxygen requirement of 3 L/minute. She did c omplain of a sore throat on the day of discharge. A respiratory pathogen panel was negative. DISPOSITION: The patient is [facility] stable cond ition. FOLLOWUP: 1. Dr. Bridger Ziegler, General Surgery in [address] Verónica Shelton, February 17 at [address] Tre Madrid, primary care provider. FURTHER FOLLOWUP INSTRUCTIONS: Include ostomy care instructions provided by the wound care nurse, deborah ich are passed on to her [facility] facility. She also needs her donna removed at the end of next week. DISCHARGE MEDICATIONS: Please see [employer] for completed updated medication list. New medications on discharge include: 1. Tylenol 650 mg p.o. q.4 hours p.r.n. 2. Unasyn 3 g IV q.6 hours through February 17. 3. Zofran 4 mg p.o. q.4 hours p.r.n. 4. Oxycodone 5-10 mg p.o. q.3 hours p.r.n. #20, no refills. 5. DuoNeb 3 mL inhaled four times daily. She will continue all her other outpatient medications, as previously prescribed. /[id number]/MODL
--- NOTE | 2018-02-08 16:14 | ASDISCHSUM ---
Discharge Information Plan Status:SNF Medically Cleared to Leave: Discharge Date:02/07/2018 04:16 PM D/C Disposition:Half-Way Facility ADT D/C Disposition:Half-Way Facility Projected Discharge Date:02/07/2018 11:00 AM Transportation at D/C:Wheelchair Van Discharge Delay Reason: Follow-Up Date:02/07/2018 11:00 AM Discharge Slot: Final Diagnosis: Placement Information Referral Type:*Fpc/SNF Referral ID:[id number] Provider Name:[facility] Address 1:[address] [facility] Address 2: City:[place] Selection Factors: State:[place] Patient Contact Information Contact Name:NATASHA Relationship:Friend Address: City: [facility] Phone: [facility] Code: Email: Financial Information Financial Class:Medicare Advantage Plans Primary Plan Desc:[facility] ADV[employer]AGE PLANS Primary Plan Number:[id number] Secondary Plan Desc: Secondary Plan Number: Assessment Information [facility] CM Progress Note CM Note CM Note Notes: Pt is s/p exploratory lap and sigmoid colectomy 2/2 a perforated sigmoid diverticulitis. She is currently on 5L O2. PT is recommending SNF. Pt is a and lives in [place]. CM will follow for d/c needs. Date Signed: 02/02/2018 03:57 PM Electronically Signed By:DAWNA Cramer [facility] CM Progress Note CM Note CM Note Notes: CM spoke w/ Dr. Martinez regarding d/c POC. Therapies are recommending SNF. CM met w/ pt for dispo planning. CM provided pt list of SNFs. Pt reports that she wants to d/c home. CM will continue to follow up tomorrow. Plan: TBD Date Signed: 02/03/2018 02:47 PM Electronically Signed By:CHUN Sloan [facility] CM Progress Note CM Note CM Note Notes: CM spoke w/ TRAVIS Crews a [employer]ed[employer] regarding d/c POC. Pts blood cultures were positive. ID has been consulted. CM met w/ pt for dispo planning. Pt would like to think about her d/c options. Pt requested that CM checks back in tomorrow. Pt has an emotional support dog that is important for her. Unfortunately, due to policy she cannot have her dog here at the hospital. CM informed pt that [facility] allows her dog to visit all day long as long as the dog doesn't stay overnight. CM to follow. Plan: TBD Date Signed: 02/04/2018 03:03 PM Electronically Signed By:CHUN Sloan [facility] CM Progress Note CM Note CM Note Notes: Today SWer met w/ Pt. in her room. Pt. w/ closed eyes seeminly in pain. SWer got bedside RN and forest examiner to help her adjust to a more comfortable position. Pt. communicated w/ SWer with her eyes closed. Pt. consented to SWer making referrals to SNFs on her behalf. Pt. confirmed that she would like to choose between SNFs in [facility], not in [place] where she lives. Today Pt. accepted to [facility]. Await response from [facility]. Will follow Pt. to determine her choice for SNF. Date Signed: 02/06/2018 03:47 PM Electronically Signed By:Michelle Turner LCSW Case Management Discharge Plan Note Case Management Discharge Discharge Order Complete? Answers: Yes Patient to Obtain Answers: Other Notes: [facility] Medications Transportation Arranged Answers: Other Notes: [facility] [employer] van Faxed Final Orders Answers: Yes Agency/Facility Transfer Answers: Yes Report Printed & Faxed to Receiving Agency Family Notified Answers: Yes Discharge Comments Notes: Pt. changed her mind today and now wants to go to a rehab facility closer to her home in [place]. [facility] was able to admit patient today. Mallory worked with Pt. and her son Long in the room today. Provided Long with contact information for [employer] office to assist Pt. in advocating for her proper social security benefits and for those of her . Sent d/c paperwork to [facility] via [employer]. Pt. picked up by [employer]. Date Signed: 02/07/2018 04:25 PM Electronically Signed By:Michelle Turner LCSW Intervention Information Intervention Type:*IM-Signed Date of Service:02/07/2018 11:14 AM Patient Type:Inpatient Staff Member:Sally Whyte Hours: Discipline: Severity: Comment:
== END 2018-02-07 16:16 | DRG 329 ==
LOC: F2W 22:41 → OBSVTOIN 02-01 02:23 → F2N 02-01 03:49 → F3E 02-01 15:23
PROVIDERS: ADMIT Surgery; ATTEND Surgery
PROC: 0D1N0Z4 Bypass Sigmoid Colon to Cutaneous, Open Approach (ICD-10-PCS; principal; 2018-02-01 00:30)
PROC: 0DTN0ZZ Resection of Sigmoid Colon, Open Approach (ICD-10-PCS; principal; 2018-02-01 00:30)
PROC: 30233N1 Transfusion of Nonautologous Red Blood Cells into Peripheral Vein, Percutaneous Approach (ICD-10-PCS; 2018-02-03)
PROC: 02HV33Z Insertion of Infusion Device into Superior Vena Cava, Percutaneous Approach (ICD-10-PCS; 2018-02-06)
DX: K57.21 Diverticulitis of large intestine with perforation and abscess with bleeding (principal); J96.21 Acute and chronic respiratory failure with hypoxia; K91.89 Other postprocedural complications and disorders of digestive system; D62 Acute posthemorrhagic anemia; N17.9 Acute kidney failure, unspecified; N39.0 Urinary tract infection, site not specified; E66.2 Morbid (severe) obesity with alveolar hypoventilation; R78.81 Bacteremia; Z68.42 Body mass index [BMI] 45.0-49.9, adult; B96.20 Unspecified Escherichia coli [E. coli] as the cause of diseases classified elsewhere; G89.29 Other chronic pain; E03.9 Hypothyroidism, unspecified; R74.0 Nonspecific elevation of levels of transaminase and lactic acid dehydrogenase [LDH]; Z99.81 Dependence on supplemental oxygen; Z72.0 Tobacco use
CPT/HCPCS: 82607-90; 96365; 97116-GP; 97161-GP; 97165-GO; 97530-GO; 97530-GP; 97535-GO; C1751; G8978-GP-CK; G8979-GP-CI; G8987-GO-CL; G8988-GO-CI; J0171; J0295; J0692; J0696; J1100; J1170; J1650; J1885; J1940; J2250; J2270; J2405; J2543; J2704; J2765; J3010; J7613; P9016; P9041; Q9967

== ENCOUNTER 2018-02-11 14:11 | Emergency (ER) | payer OTHER ==
[2018-02-11] MEDS ORDERED: NS 1,000 ML IV ONE (15:35)
--- NOTE | 2018-02-11 15:36 | EDPHY ---
HPI/HX/ROS/PE/MDM Narrative: CHIEF COMPLAINT: Abdominal pain HISTORY OF PRESENT ILLNESS: The patient is a 57 y/o female with a history of colectomy 02/02/18 for diverticulitis that had caused a perforation of her colon complaining of increasing right-sided abdominal pain. Since her surgery she has been living in an assisted care facility and receiving daily IV antibiotics. She has associated shortness of breath chronically and pain at incision site and drain site, through reports the intensity and location hasn't changed since her discharge. She denies vomiting, fever, diarrhea, urinary complaints, or any other associated symptoms. She denies history of pulmonary embolisms. No fever, chills, chest pain, palpitations, vomiting, diarrhea, urinary complaints, headache, lightheadedness. Previous medical records reviewed including 01/31/18 visit and subsequent admission and surgery. REVIEW OF SYSTEMS: Aside from elements discussed in the HPI, a comprehensive 10-point review of systems was reviewed and is negative. PAST MEDICAL HISTORY: Colectomy 02/02/18 for perforating diverticulitis, renal insufficiency, hepatitis, black mold, lumbar surgery, chronic oxygen dependancy SOCIAL HISTORY: Lives in [place], disabled, smoker VITAL SIGNS: Reviewed by me. Afebrile. GENERAL: Slightly obese individual, resting comfortably. She tells me she has been participating in physical therapy and other activities at the rehab facility. HEENT: Atraumatic. Eyes: No icterus, no injection. Mouth: moist mucous membranes. No erythema or lesions. Neck: supple with no adenopathy. LUNGS: Clear but diminished to auscultation bilaterally, no wheezes, rhonchi or rales. CARDIAC: Regular rate and rhythm, no rubs, murmurs or gallops. Very distant to auscultation. ABDOMEN: Large midline incision with minimal surrounding erythema. Colostomy bag with brown stool in lower left quadrant. Evidence of drain removal site in lower right quadrant. Tenderness along right lateral abdomen. No guarding or rebound. No distension. Not tympanitic. Soft, normal bowel sounds. BACK: No CVA tenderness. EXTREMITIES: No trauma. No edema. Range of motion is normal throughout. NEURO: Alert and oriented, grossly nonfocal. SKIN: Warm and dry, no rash. PSYCHIATRIC: Normal mentation, no agitation. ED Course: The patient presents with worsening right lateral abdominal pain following a colectomy on 02/02/18 for perforating diverticulitis. On exam, she has some erythema around the midline incision, a colostomy bag with brown stool in the lower left quadrant, and evidence of a surgical drain in the right lower quadrant. She has mild tenderness along the right lateral abdomen. Plan for CBC , complete metabolic panel, lipase, liver function, lactic acid, urinalysis, urine cultures, abdominal CT, and 1 L NS fluids. The patient's labs are rather unremarkable. The CT does not show signs of abscess or small bowel obstruction but there is some fluid in the adipose on the right side, possibly from recumbent position. The care facility reports that she hasn't been as active as physical therapy would like. Dr. Ziegler, surgeon, was consulted. He evaluated the patient in the emergency department. Please see his note. He review the CT scan. He recommends that the patient be returned to her care facility with instructions to actively participate in physical therapy, to be up and about as much as possible, to continue her typical medications, and follow up as previously instructed. Patient is in agreement. She will return if worse especially if she develops a fever, vomiting, significant increase in her pain, or drainage from her incisions. MDM: After obtaining the patient's history and performing an examination, differential diagnosis considered included but was not limited to ileus, bowel obstruction, recurrent abscess, wound infection, pyelonephritis, urinary tract infections, lower lobe pneumonia, and other causes. - Data Points Imaging Results: CT Abd Pelvis Scan with IV contrast Impression: 1. No bowel obstruction, pneumoperitoneum, or definite drainable abscess. 2. Proximal sigmoid colon diverging ostomy, without obstruction. 3. Probable scarring in the pelvis adjacent to the left side of the uterus, sigmoid resection site , with limited evaluation due to lack of oral contrast. If there is continued clinical concern, consider follow-up imaging, with oral contrast, when the patient's medical condition permits. 4. Linear atelectasis in the right lower lobe. Findings and recommendations discussed with Emergency Department physician, Hannah Gonsalez M.D., at 1625 hours, on February 11, 2018. Final report concurs with initial preliminary interpretation. Dictated By: Blake Hankins Imaging: Discussed imaging studies w/ forensic pathologist Radiologist Laboratory Results: Laboratory Results 02/11/18 15:45 02/11/18 15:45 Medications Given: Discontinued Medications Sodium Chloride (Ns) 1,000 mls @ 0 mls/hr IV EDNOW ONE; Wide Open PRN Reason: Protocol Stop: 02/11/18 15:36 Last Admin: 02/11/18 16:14 Dose: 1,000 mls General Time Seen by Provider: 02/11/18 14:57 Initial Vital Signs: Initial Vital Signs Temperature (C) 36.9 C 02/11/18 14:18 Heart Rate 77 02/11/18 14:18 Respiratory Rate 16 02/11/18 14:18 Blood Pressure 112/80 02/11/18 14:18 O2 Sat (%) 92 02/11/18 14:18 O2 Delivery Mode Nasal Cannula O2 (L/minute) 3 Allergies/Adverse Reactions: No Known Allergies Allergy (Unverified 02/11/18 14:31) Home Medications: Medication Instructions Recorded Albuterol [Proventil Inhaler HFA 1 - 2 puffs IH Q4H PRN 01/31/18 (*)] Fluticasone/Salmeter 500/50Mcg 1 puffs IH BID 01/31/18 [Advair 500/50 (*)] Furosemide [Lasix 20 MG (*)] 20 mg PO DAILY 01/31/18 Levothyroxine [Synthroid 175 mcg 175 mcg PO DAILY06 01/31/18 (*)] Acetaminophen [Tylenol 325mg (*)] 650 mg PO Q4HRS PRN tab 02/07/18 Ampicillin/Sulbactam [Unasyn] 3 gm IV Q6HRS vial 02/07/18 Ipratropium/Albuterol [Duoneb (*)] 3 ml IH QID #120 deyvial 02/07/18 Ondansetron Odt [Zofran Odt 4 mg 4 mg PO Q4HRS PRN tab 02/07/18 (*)] oxyCODONE IR [Oxycodone Ir (*)] 5 - 10 mg PO Q3HRS PRN #20 tab 02/07/18 Departure - Departure Disposition: Home, Routine, Self-Care Clinical Impression: Postoperative right sided abdominal pain Condition: Good Instructions: Pain Management (ED) Additional Instructions: 1. Continue administering all medications as previously directed. 2. Please encourage the patient to be up and active. Referrals: SONIA BALDERRAMA [Other] - As per Instructions Report Scribed for: Hannah Gonsalez Report Scribed by: Fela George Date of Report: 02/11/18 Time of Report: 16:10 Physician Review and Approval Statement: Portions of this note were transcribed by a registered medical assistant. I personally performed a history, physical exam, medical decision making, and confirmed accuracy of information the transcribed note.
[2018-02-11] MEDS ORDERED: IOPAMIDOL (ISOVUE-300) 100 ML BTL ONE (15:40)
[2018-02-11 15:56] LABS: PLATELET COUNT 182 10^3/uL (150-400)
[2018-02-11 18:04] VITALS: BP 114/71
--- NOTE | 2018-02-11 19:52 | GCON ---
[f rep st] CONSULTATION DATE OF CONSULTATION: 02/11/2018 CHIEF COMPLAINT: Abdominal pain. HISTORY OF PRESENT ILLNESS: This is a 57-year-old female, well known to me, who is status post colec roxann with Herrera pouch performed 9 days ago on the . Briefly, she presented with peritoneal si gns at that time, had a CT scan which showed perforated diverticulitis. She subsequently underwent abdominal washout with end colostomy and Herrera pouch. She really had an uneventful hospital cours e. She did well. Her white blood cell count decreased. She was sent to rehab last week with IV ant ibiotics and a PICC line. Her rehab physician actually called the clinic earlier today stating that the patient was having worsening right lower quadrant pain. He also endorsed that the patient had es sentially been gorging herself on food and per report, ate 2 racks of ribs the night previously. Her e in the emergency department, the patient states that "they brought me in." She really does not hav e much for complaints. She does, although, complain of some vague right lower abdominal pain, but liseth walker is here complaining mostly about the rehab facility currently. On my examination, she states th at she has been working diligently at rehab. She denies gorging herself with food, stating that the food does not taste very well at rehab and that she has had outside food brought in, but that she has not been eating exorbitant amounts. She also states that she has been out of bed, on the bike, and walking diligently and does not currently see a need for rehab at this time. She really does not hav e any complaints. She states that her colostomy is working well. She has been changing it with the assistance of the nurse, and she continues to get IV antibiotics per Infectious Disease's recommendat ions. Other than the above, she has no complaints. PAST MEDICAL HISTORY: Renal insufficiency, chronic hypoxemic respiratory failure on oxygen, history of diverticulosis, hypothyroidism, chronic back pain. PAST SURGICAL HISTORY: Back surgery and a recent abdominal surgery with colectomy, end colostomy and Herrera pouch. CURRENT MEDICATIONS: Reviewed. She continues to be on IV antibiotics per Infectious Disease. FAMILY HISTORY: Noncontributory. SOCIAL HISTORY: She lives in [place]. She continues to smoke and is disabled. PHYSICAL EXAM: VITAL SIGNS: Temperature 37 even, heart rate is 78, blood pressure is 114/71, and sh e is 95% on 3 L nasal cannula. CONSTITUTIONAL: She is in no apparent distress. She is teary-eyed bu t otherwise, appears comfortable. EYES: Pupils are equal, round, and reactive to light and accommod ation. She has anicteric sclerae, and her extraocular movements are intact. EARS, NOSE, MOUTH, THRO AT: Moist mucous membranes. Her hearing is normal. Her ears appear normal. She has no mucosal ulc ers in her mouth. CARDIOVASCULAR: Regular rate and rhythm without any murmurs. RESPIRATORY: Lung sounds are distant. She does not appear to be in respiratory distress. She is on oxygen. GI: Abdo men is distended normally. It is otherwise soft. Her ostomy is functioning and beefy red. There is stool in the appliance. Bowel sounds are present. Her midline incision still has the donna in pl beth, which are clean, dry, and intact. SKIN: Warm, without any rashes, with normal color. She does have some edema in the bilateral flanks. MUSCULOSKELETAL: Full strength. No tenderness. No weakn ess. NEUROLOGIC: She is alert and oriented x3. Her cranial nerves 2-12 are intact. PSYCH: She is interacting appropriately. She is not anxious or encephalopathic. LYMPHATIC/HEMATOLOGIC/IMMUNOLOGI C: No cervical, groin, or supraclavicular lymphadenopathy is appreciated. LABS: White blood cell count is normal at 5, without a left shift. H and H is stable at 9.7 and 30. 8. Chemistry is largely unremarkable. IMAGING: Includes a CT scan of the abdomen and pelvis with IV contrast, the images of which were per sonally reviewed. It shows no small bowel or colonic dilatation. It does show stool throughout the colon and a normally-situated end colostomy. There is no pelvic fluid collections or any other signi ficant findings. ASSESSMENT AND PLAN: A 57-year-old female status post colectomy with Herrera's now presenting with abdominal pain. On my examination, is overall reassuring combined with her normal labs and normal CT scan. I do not see any acute signs for her pain. We did discuss eating small frequent meals, which I think is partially contributing to this. She is in agreement with this. I do not feel that the p atient warrants admission at this time. I feel that it would be best if she were sent back to the re hab facility. I do not anticipate, by her report, if true, that she will need facility for very much longer as it sounds like she has made great progress. She will follow up in the clinic next week. Her midline donna will come out later this week. I discussed these findings with the ED physician, Dr. Gonsalez. /[id number]/MODL
== END 2018-02-11 18:53 | disposition home or self-care (01) ==
LOC: EDUNIT#
DX: G89.18 Other acute postprocedural pain (principal); R10.31 Right lower quadrant pain; E86.9 Volume depletion, unspecified
CPT/HCPCS: 74177; 96360; 99285; Q9967

== ENCOUNTER 2018-03-22 11:38 | Emergency (ER) | payer OTHER ==
--- NOTE | 2018-03-22 12:05 | EDPHY ---
H & P Source: Patient Exam Limitations: No limitations - Personal History Tetanus Vaccine Date: 2008 - Medical/Surgical History Hx Asthma: No Hx Chronic Respiratory Disease: Yes Hx Diabetes: No Hx Cardiac Disease: No Hx Renal Disease: No Hx Cirrhosis: No Hx Alcoholism: No Hx HIV/AIDS: No Hx Splenectomy or Spleen Trauma: No Other PMH: renal insufficiency, hepatitis C, black mold, chronic back pain, hypothyroid, chronic O2. - Social History Smoking Status: Light smoker Time Seen by Provider: 03/22/18 12:04 HPI/ROS: HPI: This is a 57-year-old female who presents with Chief Complaint: Fever, sore throat, headache Location: Throat Quality: Sore Duration: 1 day Signs and Symptoms: + last night she had a fever, no nausea, no vomiting, no diarrhea, no urinary symptoms, no chest pain, no shortness of breath, no wheezing, no cough, + sore throat, no neck stiffness, no joint pain, no swollen glands, no ear pain, no rash Timing: Acute Severity: [id number] Context: Patient has a history of renal insufficiency, hepatitis-C, chronic oxygen need at night status post colostomy with reversal scheduled for next week with Dr. Ziegler presents with complaints of yesterday evening having a fever of 103 F taken axillary by her daughter but no fever this morning accompanied by sore throat and generalized dull aching headache. Patient reports that she has had a decreased appetite. Denies any neck stiffness/cough/ body aches/abdominal pain/urinary symptoms. No one else in her family is sick. Modifying Factors: Tylenol last night for fever but has not taking any antipyretics today Comment: ROS: see HPI Constitutional: + fever, no chills, no weight loss Eyes: No blurred vision Respiratory: No shortness of breath, no cough Cardiovascular: No chest pain, no palpitations Gastrointestinal: No nausea, no vomiting, no diarrhea, no hematemesis, no blood in stool Genitourinary: No dysuria, no blood in urine Extremities: No myalgias, no edema Neurologic: No weakness, no numbness Skin: No rashes, no petechiae Hematologic: No bruising, no bleeding MEDICAL/SURGICAL/SOCIAL HISTORY: Medical history: renal insufficiency, hepatitis C, black mold, chronic back pain, hypothyroid, chronic O2. Surgical history: Denies Social history: Family history noncontributory. CONSTITUTIONAL: Chronically ill but nontoxic-appearing overweight middle-aged white female, awake and alert, no obvious distress HEENT: Atraumatic and normocephalic, PERRL, EOMI. Nares patent; no rhinorrhea; no nasal mucosal edema. Tympanic membranes clear. Oropharynx clear, no exudate and moist pink mucosa. Airway patent. No lymphadenopathy. No meningismus. Cardiovascular: Normal S1/S2, regular rate, regular rhythm, without murmur rub or gallop. PULMONARY/CHEST: Symmetrical and nontender. Clear to auscultation bilaterally. Good air movement. No accessory muscle usage. ABDOMEN: Soft, nondistended, nontender, colostomy draining brown discharge present. EXTREMITIES: 2/2 pulses, strength 5/5, no deformities, no clubbing, no cyanosis or edema. NEUROLOGICAL: no focal neuro deficits. GCS 15. SKIN: Warm and dry, no erythema. no rash. Good capillary refill. (Antoinette Shea) Constitutional: Initial Vital Signs Temperature (C) 37.8 C 03/22/18 11:52 Heart Rate 109 H 03/22/18 11:52 Respiratory Rate 18 03/22/18 11:52 Blood Pressure 128/81 H 03/22/18 11:52 O2 Sat (%) 92 03/22/18 11:52 O2 Delivery Mode Room Air Allergies/Adverse Reactions: No Known Allergies Allergy (Verified 03/22/18 11:58) Home Medications: Medication Instructions Recorded Furosemide [Lasix 20 MG (*)] 20 mg PO DAILY 01/31/18 Levothyroxine [Synthroid 175 mcg 175 mcg PO DAILY06 01/31/18 (*)] oxyCODONE IR [Oxycodone Ir (*)] 5 - 10 mg PO Q3HRS PRN #20 tab 02/07/18 Medical Decision Making ED Course/Re-evaluation: Strep test, labs, IV fluids, IV medications ordered Given 1 L normal saline, IV promethazine, IV Decadron Vital signs reviewed and show mild tachycardia; suspect mild dehydration. No fever present greater than 10 hr per patient history. Lung exam is benign; chest x-ray not indicated and doubt pneumonia. Abdomen is soft and nontender. Doubt surgical process. 1320: Labs reviewed. Minimal leukocytosis at 10 K. H/Hb 11.6/36.4= stable poor baseline. No signs of platelet dysfunction/SARAH/elevated LFTs/electrolyte imbalance. Strep is negative. No signs of meningitis/otitis media/bronchitis/sinusitis 1325: Reassessed patient who has been sleeping soundly for the last 30 min per her sister at bedside. She reports relief of headache and that she feels better. She is asking to be discharged home. This patient was seen under the supervision of my secondary supervising physician. I evaluated care for this patient independently. (Antoinette Shea) Differential Diagnosis: Adult fever including but not limited to viral syndromes including influenza, urinary tract infection, pneumonia and sepsis. (Antoinette Shea) Other Provider: PHYSICIAN DOCUMENTATION: The patient was evaluated and managed by the Physician Mail Truck Driver. My co- signature indicates that I have reviewed this chart and I agree with the findings and plan of care as documented. I am the secondary supervising physician. (James Carter) - Data Points Laboratory Results: Laboratory Results 03/22/18 12:35 03/22/18 12:35 03/22/18 03/22/18 03/22/18 Unknown 12:35 12:35 WBC 10.64 10^3/uL H 10^3/uL (3.80-9.50) RBC 3.98 10^6/uL L 10^6/uL (4.18-5.33) Hgb 11.6 g/dL L g/dL (12.6-16.3) Hct 36.4 % L % (38.0-47.0) MCV 91.5 fL fL (81.5-99.8) MCH 29.1 pg pg (27.9-34.1) MCHC 31.9 g/dL L g/dL (32.4-36.7) RDW 14.0 % % (11.5-15.2) Plt Count 205 10^3/uL 10^3/uL (150-400) MPV 11.0 fL fL (8.7-11.7) Neut % (Auto) 86.2 % H % (39.3-74.2) Lymph % (Auto) 8.1 % L % (15.0-45.0) [place] % (Auto) 4.8 % % (4.5-13.0) Eos % (Auto) 0.4 % L % (0.6-7.6) Baso % (Auto) 0.1 % L % (0.3-1.7) Nucleat RBC Rel Count 0.0 % % (0.0-0.2) Absolute Neuts (auto) 9.18 10^3/uL H 10^3/uL (1.70-6.50) Absolute Lymphs (auto) 0.86 10^3/uL L 10^3/uL (1.00-3.00) Absolute Monos (auto) 0.51 10^3/uL 10^3/uL (0.30-0.80) Absolute Eos (auto) 0.04 10^3/uL 10^3/uL (0.03-0.40) Absolute Basos (auto) 0.01 10^3/uL L 10^3/uL (0.02-0.10) Absolute Nucleated RBC 0.00 10^3/uL 10^3/uL (0-0.01) Immature Gran % 0.4 % % (0.0-1.1) Immature Gran # 0.04 10^3/uL 10^3/uL (0.00-0.10) Sodium 138 mEq/L mEq/L (135-145) Potassium 3.9 mEq/L mEq/L (3.3-5.0) Chloride 102 mEq/L mEq/L (97-110) Carbon Dioxide 23 mEq/l mEq/l (22-31) Anion Gap 13 mEq/L mEq/L (8-16) BUN 19 mg/dL mg/dL (7-23) Creatinine 0.7 mg/dL mg/dL (0.6-1.0) Estimated GFR > 60 Glucose 109 mg/dL H mg/dL (70-100) Calcium 9.7 mg/dL mg/dL (8.5-10.4) Group A Strep Screen Group A Strep DNA Pending 03/22/18 12:19 WBC RBC Hgb Hct MCV MCH MCHC RDW Plt Count MPV Neut % (Auto) Lymph % (Auto) [place] % (Auto) Eos % (Auto) Baso % (Auto) Nucleat RBC Rel Count Absolute Neuts (auto) Absolute Lymphs (auto) Absolute Monos (auto) Absolute Eos (auto) Absolute Basos (auto) Absolute Nucleated RBC Immature Gran % Immature Gran # Sodium Potassium Chloride Carbon Dioxide Anion Gap BUN Creatinine Estimated GFR Glucose Calcium Group A Strep Screen NEGATIVE (NEGATIVE) Group A Strep DNA Medications Given: Discontinued Medications Dexamethasone (Decadron Injection) 8 mg IVP EDNOW ONE Stop: 03/22/18 12:21 Last Admin: 03/22/18 12:39 Dose: 8 mg Sodium Chloride (Ns) 1,000 mls @ 0 mls/hr IV EDNOW ONE; Wide Open PRN Reason: Protocol Stop: 03/22/18 12:21 Last Admin: 03/22/18 12:38 Dose: 1,000 mls Promethazine HCl (Phenergan) 12.5 mg IVP EDNOW ONE Stop: 03/22/18 12:21 Last Admin: 03/22/18 12:39 Dose: 12.5 mg Departure - Departure Disposition: Home, Routine, Self-Care Clinical Impression: Viral pharyngitis Condition: Good Instructions: Pharyngitis (ED), Viral Syndrome (ED) Additional Instructions: Strep test today was negative and laboratory studies were within normal limits. It appears that you have a viral illness. Rest as much as possible until you are feeling better. Consume a minimum of 8-10 glasses of water or electrolyte fluid replacement drinks that include Gatorade, Powerade, Pedialyte. Eat a bland diet for the next 48 hours and then slowly advance as tolerated. Take Tylenol 650 mg every 4 hours as needed for pain, fever, sore throat. Use [id number] throat lozenges or cough drops as needed for sore throat. Return to the ER immediately if you experience shortness of breath, abdominal pain, inability to tolerate oral intake, or any other symptoms that concern you. Referrals: Tre Madrid DO [Primary Care Provider] - 3-4 days, if not improved
[2018-03-22] MEDS ORDERED: PROMETHAZINE HCL 25 MG/ML INJ IVP ONE (12:20)
[2018-03-22] MEDS ORDERED: NS 1,000 ML IV ONE (12:20)
[2018-03-22] MEDS ORDERED: DEXAMETHASONE 4 MG/ML VIAL IVP ONE (12:20)
[2018-03-22 13:02] LABS: PLATELET COUNT 205 10^3/uL (150-400)
[2018-03-22 14:04] VITALS: BP 108/80
[2018-03-23 10:10] LABS: GROUP A STREP DNA (THROAT) POSITIVE (NEGATIVE)
== END 2018-03-22 14:03 | disposition home or self-care (01) ==
DX: J02.8 Acute pharyngitis due to other specified organisms (principal); B97.89 Other viral agents as the cause of diseases classified elsewhere; F17.200 Nicotine dependence, unspecified, uncomplicated; E86.9 Volume depletion, unspecified
CPT/HCPCS: 96361; 96374; 96375; 99284; J1100; J2550

== ENCOUNTER 2018-03-24 14:54 | Emergency (ER) | payer OTHER ==
[2018-03-24 15:03] VITALS: BP 103/82
--- NOTE | 2018-03-24 15:05 | EDPHY ---
H & P Stated Complaint: Redness on abdomen Time Seen by Provider: 03/24/18 15:04 HPI/ROS: CHIEF COMPLAINT: Abdominal rash HISTORY OF PRESENT ILLNESS: The patient presents the ED with complaints of extensive abdominal rash which developed over the past day. The patient was seen in the emergency department with an upper respiratory infection several days ago. She also underwent a CT scan of the abdomen pelvis with IV contrast today for evaluation of a reversal of a colostomy. The patient's colostomy was performed approximately 2 months ago following a colonic perforation complicated by abscess. The patient complains of moderate pain and a vesicular erythematous rash to her mid abdomen and back only on the right side. REVIEW OF SYSTEMS: A comprehensive 10 point review of systems is otherwise negative aside from elements mentioned in the history of present illness. Source: Patient Exam Limitations: No limitations - Personal History Current Tetanus/Diphtheria Vaccine: Yes Current Tetanus Diphtheria and Acellular Pertussis (TDAP): Yes Tetanus Vaccine Date: 2008 - Medical/Surgical History Hx Asthma: No Hx Chronic Respiratory Disease: Yes Hx Diabetes: No Hx Cardiac Disease: No Hx Renal Disease: No Hx Cirrhosis: No Hx Alcoholism: No Hx HIV/AIDS: No Hx Splenectomy or Spleen Trauma: No Other PMH: renal insufficiency, hepatitis C, black mold, chronic back pain, hypothyroid, chronic O2., stoma - Social History Smoking Status: Light smoker - Physical Exam Exam: General Appearance: Alert, no distress Eyes: Pupils equal and round no pallor or injection ENT, Mouth: Mucous membranes moist Respiratory: There are no retractions, lungs are clear to auscultation Cardiovascular: Regular rate and rhythm Gastrointestinal: Abdomen is soft and nontender, no masses, bowel sounds normal , stoma pink Neurological: A&O, normal motor function, normal sensory exam, normal cranial nerves Skin: Rash consistent with shingles noted on the anterior abdomen and flank. Musculoskeletal: Neck is supple nontender Extremities: symmetrical, full range of motion Psychiatric: Patient is oriented X 3, there is no agitation Constitutional: Initial Vital Signs Temperature (C) 36.7 C 03/24/18 14:59 Heart Rate 95 03/24/18 14:59 Respiratory Rate 16 03/24/18 14:59 Blood Pressure 103/82 H 03/24/18 14:59 O2 Sat (%) 92 03/24/18 14:59 O2 Delivery Mode Room Air Allergies/Adverse Reactions: No Known Allergies Allergy (Verified 03/24/18 14:59) Home Medications: Medication Instructions Recorded Levothyroxine [Synthroid 175 mcg 175 mcg PO DAILY06 01/31/18 (*)] oxyCODONE IR [Oxycodone Ir (*)] 5 - 10 mg PO Q3HRS PRN #20 tab 02/07/18 Valacyclovir HCl [Valtrex] 1,000 mg PO TID #21 tab 03/24/18 oxyCODONE IR [Oxycodone Ir (*)] 5 - 10 mg PO 20 PRN #20 tab 03/24/18 Medical Decision Making ED Course/Re-evaluation: The patient presents to the ED with shingles. She will be started on Valtrex. The patient is not given steroids as there is no clear benefit and certainly some risk of bacterial superinfection. The patient is given a prescription for Oxy IR. She is advised to follow up with her primary care provider in general surgeon as scheduled. Differential Diagnosis: Differential diagnosis considered includes shingles, cellulitis, abscess, contrast reaction Departure - Departure Disposition: Home, Routine, Self-Care Clinical Impression: Shingles Qualifiers: Herpes zoster complications: without complications Qualified Code(s): B02.9 - Zoster without complications Condition: Good Instructions: Shingles (ED) Additional Instructions: 1. Take Valtrex as prescribed. 2. Oxy IyR Referrals: Tre Madrid DO [Primary Care Provider] - As per Instructions
== END 2018-03-24 15:38 | disposition home or self-care (01) ==
DX: B02.9 Zoster without complications (principal); F17.200 Nicotine dependence, unspecified, uncomplicated

== ENCOUNTER → 2018-03-24 | Outpatient (CLI) | payer OTHER ==
[~2018-03-24] MED LIST: IOPAMIDOL (ISOVUE-300) 100 ML BTL ONE
== END ==
LOC: FIMAGING 14:13
PROVIDERS: ATTEND Surgery
DX: R60.0 Localized edema (principal); R59.9 Enlarged lymph nodes, unspecified
CPT/HCPCS: 74177; Q9967

== ENCOUNTER 2018-04-22 06:03 | Inpatient (IN) | payer OTHER ==
[2018-04-22] MEDS ORDERED: LR 1,000 ML IV ONE (06:32)
[2018-04-22] MEDS ORDERED: BUPIVACAINE 0.25% 30 ML SDV ONE (07:00)
[2018-04-22] MEDS ORDERED: EPINEPHrine 1 MG/ML INJ ONE (07:00)
[2018-04-22] MEDS ORDERED: MIDAZOLAM 2 MG/2 ML VIAL IVP ONE (07:02)
--- NOTE | 2018-04-22 07:04 | PDHPUP ---
History & Physical Update H&P update statement: This history and physical update is based on an assessment of the patient which was completed after admission or registration (within 24 hours), but prior to the surgery/procedure. H&P update: H&P reviewed & patient examined, no change in patient's condition since H&P completed
--- NOTE | 2018-04-22 07:04 | PDANEPAE ---
ANE History of Present Illness colostomy ANE Past Medical History - Cardiovascular History Hx Hypertension: No Hx Arrhythmias: No Hx Chest Pain: No Hx Coronary Artery / Peripheral Vascular Disease: No Hx CHF / Valvular Disease: No Hx Palpitations: No - Pulmonary History Hx COPD: Yes Hx Asthma/Reactive Airway Disease: No Hx Recent Upper Respiratory Infection: No Hx Oxygen in Use at Home: No Hx Sleep Apnea: No Sleep Apnea Screening Result - Last Documented: Positive Pulmonary History Comment: COPD IMPROVED SINCE ABD SURGERY AND WT LOSS. NO O2 - Neurologic History Hx Cerebrovascular Accident: No Hx Seizures: No Hx Dementia: No - Endocrine History Hx Diabetes: No Endocrine History Comment: HYPOTHYROID - Renal History Hx Renal Disorders: No - Liver History Hx Hepatic Disorders: Yes Hepatic History Comment: CHRONIC HEP C - WAS ON MEDS -CLEARED 3 YRS AGO - Neurological & Psychiatric Hx Hx Neurological and Psychiatric Disorders: Yes Neurological / Psychiatric History Comment: ACUTE ANXIETY WHILE IN HOSP POST SURGERY - Cancer History Hx Cancer: No - Congenital Disorder History Hx Congenital Disorders: No - GI History Hx Gastrointestinal Disorders: No Gastrointestinal History Comment: COLOSTOMY. TRAUMATIC FALL W/PERFORATION LARGE INTESTINE - Other Health History Other Health History: NEG - Chronic Pain History Chronic Pain: Yes - Surgical History Prior Surgeries: SPINAL FUSION. ABD TUMOR INFANT. LACERATION L ARM. COLONOSCOPY, EGD ANE Review of Systems Review of Systems: - Exercise capacity METS (RN): 4 METS ANE Patient History - Allergies Allergies/Adverse Reactions: No Known Allergies Allergy (Verified 04/22/18 06:34) - Home Medications Home Medications: Levothyroxine [Synthroid 175 mcg (*)] 175 mcg PO DAILY06 01/31/18 [Last Taken ] oxyCODONE IR [Oxycodone Ir (*)] 30 mg PO QID 04/21/18 [Last Taken 04/20/18] - NPO status NPO Since - Liquids (Date): 04/21/18 NPO Since - Liquids (Time): 23:00 NPO Since - Solids (Date): 04/20/18 - Smoking Hx Smoking Status: Former smoker - Family Anes Hx Family Hx Anesthesia Complications: NEG ANE Labs/Vital Signs - Vital Signs Blood Pressure: 110/72 Heart Rate: 82 Respiratory Rate: 16 O2 Sat (%): 92 Height: 162.56 cm Weight: 99.79 kg ANE Physical Exam - Airway Mallampati Score: Class 1 Mouth exam: normal dental/mouth exam - Pulmonary Pulmonary: no respiratory distress - Cardiovascular Cardiovascular: regular rate and rhythym - ASA Status ASA Status: III ANE Anesthesia Plan Anesthesia Plan: general endotracheal anesthesia
[2018-04-22] MEDS ORDERED: HYDROmorphONE/DILAUDID 2 MG/ML INJ ONE (07:12)
[2018-04-22] MEDS ORDERED: fentaNYL 100 MCG/2 ML INJ ONE ×2 (07:12)
[2018-04-22] MEDS ORDERED: PROPOFOL 200 MG/20 ML VIAL ONE (07:12)
[2018-04-22] MEDS ORDERED: DEXAMETHASONE 4 MG/ML VIAL ONE (08:11)
[2018-04-22] MEDS ORDERED: ONDANSETRON 4 MG/2 ML VIAL ONE (08:11)
[2018-04-22] MEDS ORDERED: ROCURONIUM 50 MG/5 ML VIAL ONE (08:11)
[2018-04-22] MEDS ORDERED: PHENYLEPHRINE HCL 100 MCG/ML SYR ONE (08:11)
[2018-04-22] MEDS ORDERED: NALOXONE HCL 0.4 MG/ML INJ IVP PRN ×2 (08:29→10:38)
[2018-04-22] MEDS ORDERED: fentaNYL 100 MCG/2 ML INJ IVP PRN (08:29)
[2018-04-22] MEDS ORDERED: HYDROCODONE/APAP 5/325 TAB PO PRN (08:29)
[2018-04-22] MEDS ORDERED: HYDROmorphONE/DILAUDID 1 MG/ML INJ IVP PRN (08:29)
[2018-04-22] MEDS ORDERED: PROMETHAZINE HCL 25 MG/ML INJ IVP PRN (08:29)
[2018-04-22] MEDS ORDERED: ONDANSETRON 4 MG/2 ML VIAL IVP PRN ×2 (08:29→10:37)
[2018-04-22] MEDS ORDERED: SUGAMMADEX SODIUM 200 MG/2 ML VIAL IVP ONE (10:28)
--- NOTE | 2018-04-22 10:37 | POSTOPPROG ---
Post Op Note Date of Operation: 04/22/18 Surgeon: Bridger Ziegler Belt Brander: MD [facility]isa Gotti [facility] Anesthesiologist: Yung Anesthesia: GET(General Endotracheal) Pre-op Diagnosis: perforated divertic, colostomy in place Post-op Diagnosis: same Procedure: Lap - open colostomy takedown Findings: 29EEA, negative leak test x3 Inf/Abcess present in the surg proc area at time of surgery?: No EBL: Minimal Specimen(s): descending colon
[2018-04-22] MEDS ORDERED: HYDROmorphONE/DILAUDID 6 MG/30 ML PCA IV PRN (10:38)
--- NOTE | 2018-04-22 10:46 | POSTANESTH ---
Post Anesthetic Evaluation Cardiovascular Status: Normal, Stable Respiratory Status: Normal, Stable Level of Consciousness/Mental Status: Can Participate in Eval Pain Control: Adequate, Prn Tx Ordered Nausea/Vomiting Control: Adequate, Prn Tx Ordered Complications Possibly Related to Anesthesia: None Noted
--- NOTE | 2018-04-22 11:27 | PDMN ---
Medical Necessity Medical necessity: Pt meets inpt criteria per MD order and [facility] [place] [facility], General Surgery, M'care in pt only, 4 days.Pt admitted for open colostomy takedown.
[2018-04-22] MEDS: D5W 1/2 NS W/ 20 KCl/L 1,000 ML IV SCH ×2 (13:15→23:29)
[2018-04-23] MEDS: LEVOTHYROXINE 175 MCG TAB PO SCH (06:02)
[2018-04-23] MEDS: ENOXAPARIN 40 MG/0.4 ML SYR SC SCH (09:12)
[2018-04-23] MEDS: D5W 1/2 NS W/ 20 KCl/L 1,000 ML IV SCH ×2 (10:19→20:08)
--- NOTE | 2018-04-23 12:02 | SOAPPROG ---
SOAP Progress Note Assessment/Plan: Assessment: 57-YEAR-OLD FEMALE STATUS POST COLOSTOMY CLOSURE DOING OKAY/ AFEBRILE/ NONE HUNGRY/ FLATUS NEGATIVE AND BMS ARE NEGATIVE ABDOMEN SOFT, MILD INCISIONAL TENDERNESS, DECREASED BOWEL SOUNDS STABLE POSTOP DAY 1. Plan: CONTINUE ORDERS AND NPO 04/23/18 12:00 Objective: Vital Signs Temp Pulse Resp BP Pulse Ox 36.6 C 57 L 18 97/60 L 97 04/23/18 10:00 04/23/18 10:00 04/23/18 10:00 04/23/18 10:00 04/23/18 10:00 04/22/18 04/23/18 04/24/18 05:59 05:59 05:59 Intake Total 2250 Output Total 1050 Balance 1200 ICD10 Worksheet Patient Problems: Problems Problem Status Onset Abdominal pain Acute Anemia Acute GI bleed Acute Intra-abdominal abscess Acute LFT elevation Acute Perforated viscus Acute
--- NOTE | 2018-04-23 14:43 | ASMTCMCOM ---
CM Note CM Note Notes: Spoke w/RN, pt admitted for scheduled reversal of her colostomy. Will be her for several days, pt lives alone, CM will follow. DC Plan: TBD Date Signed: 04/23/2018 02:43 PM Electronically Signed By:Carola Nguyen RN
[2018-04-23] MEDS ORDERED: ONDANSETRON 4 MG/2 ML VIAL IVP PRN (19:58)
[2018-04-24] MEDS: LEVOTHYROXINE 175 MCG TAB PO SCH (04:57)
[2018-04-24] MEDS: D5W 1/2 NS W/ 20 KCl/L 1,000 ML IV SCH (06:01)
--- NOTE | 2018-04-24 08:16 | SOAPPROG ---
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 04/24/18 08:15 Subjective: some pain, no flatus. Has walked once Objective: Vital Signs Temp Pulse Resp BP Pulse Ox 37.0 C 60 16 118/76 98 04/24/18 07:29 04/24/18 07:29 04/24/18 07:29 04/24/18 07:29 04/24/18 07:29 04/23/18 04/24/18 04/25/18 05:59 05:59 05:59 Intake Total 2250 2350 Output Total 1050 1050 Balance 1200 1300 ICD10 Worksheet Patient Problems: Problems Problem Status Onset Abdominal pain Acute Anemia Acute GI bleed Acute Intra-abdominal abscess Acute LFT elevation Acute Perforated viscus Acute
--- NOTE | 2018-04-24 08:47 | GOP ---
[f rep st] OPERATIVE REPORT DATE OF OPERATION: 04/22/2018 SURGEON: Bridger Zigeler MD GYM TEACHER: 1. Lourdes Kessler MD. 2. Inga Trivedi, Certified Surgical Administration Professional. ANESTHESIA: General endotracheal. ANESTHESIOLOGIST: Kristopher Barragan MD. PREOPERATIVE DIAGNOSIS: Perforated diverticulitis with colostomy in place. POSTOPERATIVE DIAGNOSIS: Perforated diverticulitis with colostomy in place. PROCEDURE PERFORMED: Laparoscopic converted to open colostomy takedown. FINDINGS: Successful anastomosis of descending colon to rectal stump with 29 EEA stapler. Negative leak test x3. Back table examination of anastomotic rings showed 2 intact rings. SPECIMENS: Descending colon, anastomotic rings ESTIMATED BLOOD LOSS: 20 cc. DESCRIPTION OF PROCEDURE: The patient was greeted in the preoperative suite. Once again, risks, benefits, and alternatives were discussed. Consent was signed. She was then brought back to the operative suite, placed on the OR table in supine position. After all anesthesia machines including SCDs were on and functioning, World [employer] time-out was performed. After successful induction of general anesthesia, the patient was placed in a low lithotomy position in Yellofin stirrups with all pressure points appropriately padded. A Maya catheter was placed and her abdomen was prepped and draped in typical sterile fashion. I entered the abdomen using the Veress needle via a separate stab incision in the left upper quadrant and I achieved pneumoperitoneum to 15 mmHg which was well tolerated by the patient. After this , I inserted a 5 mm port in the right upper quadrant using the Visiport technique. Once successfully in the abdomen, I placed 2 additional 5 mm trocars , 1 in the right lower and 1 just above the umbilicus. The patient had a significant amount of adhesions consisting of both omentum and small bowel to the anterior abdominal wall. I spent about 90 minutes lysing majority of these adhesions, which she had a loop of small bowel which was densely adherent to the anterior abdominal wall which precluded full lysis. It is at this point that I converted to an open procedure. I was able to successfully lyse the remainder of these adhesions. Once this was done, I turned my attention toward the pelvis. The patient again had multiple small bowel adhesions to the pelvic wall as well as her uterus and ovaries. I successfully took these down, identified the rectal stump, which was clean, intact. I saw no residual fluid collection or abscesses. I then took down the colostomy from its stoma site. I had sufficient length. I amputated approximately 8 more cm of this and passed it off. The distal end of the descending colon was well perfused and viable. Using an auto purse young, I successfully purse-stringed this area and put the firing anvil of the 29 mm stapler within this. Stapler was then brought through the rectum to the tip of the rectal stump. Prior to this, the rectal stump was mobilized somewhat from the mesorectum around it. The firing pin was brought out, attached to the anastomotic pin and successfully anastomosed. Back table examination of the anastomotic rings showed 2 intact rings. A leak test was then performed, which was negative x3. The patient's pelvis was then irrigated with warm normal saline noting clear effluent in the suction canister. I inspected the small bowel. I found no other significant pathology. A clean closure was then brought in place, new gowns, gloves and new instruments. The stoma site was closed with a running #1 PDS. The midline incision was closed with a separate #1 PDS in running fashion noting excellent fascial reapproximation for the midline incision. The skin was closed with donna over which a sterile dressing was placed. At the colostomy site, the skin was approximated gently with a purse string Vicryl suture. It was then filled with Hydrofera and an Allevyn was placed. The patient was then extubated in the operative suite and taken to the PACU in satisfactory condition. DRAINS: None. COUNTS: All counts were reported as correct x2. /[id number]/MODL MTDD
[2018-04-24] MEDS: ENOXAPARIN 40 MG/0.4 ML SYR SC SCH (10:31)
[2018-04-25] MEDS: D5W 1/2 NS W/ 20 KCl/L 1,000 ML IV SCH (02:16)
[2018-04-25 05:47] LABS: PLATELET COUNT 175 10^3/uL (150-400)
[2018-04-25] MEDS: LEVOTHYROXINE 175 MCG TAB PO SCH (05:48)
[2018-04-25] MEDS: ENOXAPARIN 40 MG/0.4 ML SYR SC SCH (09:11)
--- NOTE | 2018-04-25 10:20 | ASMTCMCOM ---
CM Note CM Note Notes: Reviewed poc w/ RN, pt cleared for home by PT. Anticipate she will dc home w/support of sons when medically stable. CM available for any changes. DC Plan: Independent Date Signed: 04/25/2018 10:17 AM Electronically Signed By:Carola Nguyen RN
--- NOTE | 2018-04-25 11:08 | SOAPPROG ---
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 Clear diet ok - ambulate - dc matta - dispo pending BOTTLE BLOWING MACHINE TENDER wean, BM, labs look great today 04/24/18 08:15 04/25/18 11:07 Subjective: passing flatus, wants to eat Objective: Vital Signs Temp Pulse Resp BP Pulse Ox 36.9 C 70 16 108/73 95 04/25/18 07:57 04/25/18 07:57 04/25/18 07:57 04/25/18 07:57 04/25/18 07:57 Laboratory Results 04/25/18 05:02 04/25/18 05:02 04/24/18 04/25/18 04/26/18 05:59 05:59 05:59 Intake Total 2350 2458 Output Total 1050 3050 Balance 1300 -592 ICD10 Worksheet Patient Problems: Problems Problem Status Onset Abdominal pain Acute Anemia Acute GI bleed Acute Intra-abdominal abscess Acute LFT elevation Acute Perforated viscus Acute
[2018-04-25] MEDS: D5W 1/2 NS 1,000 ML IV SCH ×2 (12:34→22:38)
[2018-04-26] MEDS: LEVOTHYROXINE 175 MCG TAB PO SCH (05:26)
[2018-04-26 07:24] VITALS: BP 112/72
[2018-04-26] MEDS ORDERED: oxyCODONE IR 5 MG TAB PO PRN (07:32)
[2018-04-26] MEDS: ENOXAPARIN 40 MG/0.4 ML SYR SC SCH (07:50)
--- NOTE | 2018-05-15 12:12 | GDS ---
[f rep st] DISCHARGE SUMMARY DISCHARGE DIAGNOSES: Include colostomy takedown. HOSPITAL COURSE: The patient was admitted and taken to the operating room where she underwent uneven tful laparoscopic colostomy takedown. She had an uneventful hospital course, was having bowel functi on, and her pain was well controlled. She was subsequently discharged home in stable condition on the . DISPOSITION: Home. FOLLOWUP: She will follow up with me in 10-14 days for routine hospital stay. /[id number]/MODL
== END 2018-04-26 09:53 | disposition home or self-care (01) | DRG 331 ==
LOC: F3N 06:03 → F3E 07:11
PROVIDERS: ADMIT Surgery; ATTEND Surgery
DX: Z43.3 Encounter for attention to colostomy (principal); Z53.31 Laparoscopic surgical procedure converted to open procedure; K66.0 Peritoneal adhesions (postprocedural) (postinfection); J44.9 Chronic obstructive pulmonary disease, unspecified; E03.9 Hypothyroidism, unspecified; B19.20 Unspecified viral hepatitis C without hepatic coma; Z87.891 Personal history of nicotine dependence
CPT/HCPCS: 97116-GP; 97161-GP; 97530-GP; G8978-GP-CI; G8978-GP-CJ; G8979-GP-CI; G8980-GP-CI; J0171; J0696; J1100; J1170; J1650; J2250; J2370; J2405; J2704; J3010